=== PATIENT | male | born 1945 | race Two or more races ===

== ENCOUNTER 2016-06-28 00:22 | Inpatient (IN) | payer MEDICARE, MEDICAID ==
[~2016-06-28] VITALS: Ht 162.6 cm; Wt 52.2 kg
[2016-06-28] VITALS (43 sets, daily range): BP systolic 102–143; BP diastolic 46–80
[2016-06-28] MEDS ORDERED: ASPIRIN 325 MG TABLET PO ONE (02:30)
[2016-06-28] MEDS ORDERED: ALBUTEROL FS 2.5 MG/3 ML VIAL.NEB NEB ONE (02:30)
[2016-06-28] MEDS ORDERED: ASPIRIN 81 MG TAB.CHEW ONE (02:41)
[2016-06-28 02:47] LABS: BASOPHILS # (AUTO) 0.1 /CMM (0.0-0.2); BASOPHILS % (AUTO) 0.4 % (0.0-2.0); DIFF TOTAL % 100 %; EOSINOPHILS # (AUTO) 0.3 /CMM (0.0-0.7); EOSINOPHILS % (AUTO) 2.3 % (0.0-6.0); HEMATOCRIT 41 % (39-51); HEMOGLOBIN 13.1 g/dL (13.5-17.5); LYMPHOCYTES # (AUTO) 1.3 /CMM (0.8-4.8); LYMPHOCYTES % (AUTO) 8.8 % (20.0-44.0); MEAN CORPUSCULAR HEMOGLOBIN 27 PG (26.0-33.0); MEAN CORPUSCULAR HGB CONC 32 g/dl (31.0-36.0); MEAN CORPUSCULAR VOLUME 83 fL (80-96); MONOCYTES # (AUTO) 1.2 /CMM (0.1-1.30); MONOCYTES % (AUTO) 7.8 % (2.0-12.0); NEUTROPHILS # (AUTO) 12.3 /CMM (1.8-8.9); NEUTROPHILS % (AUTO) 80.7 % (43.0-81.0); PLATELET COUNT (AUTO) 263 /CMM (150-450); RED BLOOD CELL COUNT(AUTO) 4.92 MIL/uL (4.5-6.0); WHITE BLOOD COUNT (AUTO) 15.3 K/uL (4.3-11.0)
[2016-06-28] MEDS ORDERED: ALBUTEROL FS 2.5 MG/3 ML VIAL.NEB ONE (02:48)
[2016-06-28 03:06] LABS: TROPONIN I 0.026 ng/mL (0.00-0.056)
[2016-06-28 03:11] LABS: CALCIUM, SERUM 9.7 mg/dL (8.5-10.1); CREATININE 6.7 mg/dL (0.6-1.3)
[2016-06-28 03:14] LABS: POTASSIUM 6.7 mmol/L (3.5-5.1)
[2016-06-28 03:37] LABS: ANISOCYTOSIS 2+; TARGET CELLS 1+; TEAR DROP CELLS 1+
[2016-06-28] MEDS ORDERED: DEXTROSE 50%-WATER 50 ML DISP.SYRIN ONE (04:20)
[2016-06-28] MEDS ORDERED: NITROGLYCERIN 0.4 MG/TAB BOTTLE ONE (04:20)
[2016-06-28] MEDS ORDERED: FUROSEMIDE 100 MG/10 ML VIAL ONE (04:20)
[2016-06-28] MEDS ORDERED: INSULIN REGULAR, HUMAN 100 UNIT/ML 10 ML VIAL ONE (04:21)
[2016-06-28] MEDS ORDERED: ALBUTEROL FS 2.5 MG/0.5 ML VIAL.NEB ONE (04:23)
[2016-06-28] MEDS ORDERED: NITROGLYCERIN 0.4 MG/TAB BOTTLE SL PRN ×2 (04:30→05:30)
[2016-06-28] MEDS ORDERED: FUROSEMIDE 40 MG/4 ML VIAL IV ONE (04:30)
[2016-06-28] MEDS ORDERED: ALBUTEROL FS 2.5 MG/0.5 ML VIAL.NEB NEB ONE (04:30)
[2016-06-28] MEDS ORDERED: DEXTROSE 50%-WATER 50 ML DISP.SYRIN IVP ONE (04:30)
[2016-06-28] MEDS ORDERED: INSULIN REGULAR, HUMAN 100 UNIT/ML 10 ML VIAL IV ONE (04:30)
[2016-06-28] MEDS ORDERED: ALBUTEROL FS 2.5 MG/0.5 ML VIAL.NEB NEB PRN (05:30)
[2016-06-28] MEDS ORDERED: HYDROCODONE/APAP 5/325MG 1 EACH TABLET PO PRN ×2 (05:30→10:00)
[2016-06-28] MEDS ORDERED: ACETAMINOPHEN 325 MG TABLET PO PRN ×2 (05:30→10:00)
[2016-06-28] MEDS ORDERED: ONDANSETRON HCL/PF 4 MG/2 ML VIAL IVP PRN (05:30)
[2016-06-28] MEDS ORDERED: Z GUARD REMEDY 2 OZ OINT TP PRN (05:30)
[2016-06-28] MEDS ORDERED: MAG HYDROX/AL HYDROX/SIMETH 30 ML UDC PO PRN (05:30)
[2016-06-28] MEDS ORDERED: ZOLPIDEM TARTRATE 5 MG TABLET PO PRN (05:30)
[2016-06-28] MEDS ORDERED: MORPHINE SULFATE INJ 2 MG/ML DISP.SYRIN IV PRN (05:30)
[2016-06-28] MEDS ORDERED: MAGNESIUM HYDROXIDE 30 ML UDC PO PRN (05:30)
[2016-06-28] MEDS ORDERED: IPRATROPIUM NEB FS 0.5 MG/2.5 ML AMPUL.NEB NEB PRN (05:30)
[2016-06-28 06:02] LABS: TROPONIN I 0.024 ng/mL (0.00-0.056)
[2016-06-28] MEDS: PANTOPRAZOLE 40 MG TABLET.DR PO SCH (07:30)
[2016-06-28] MEDS ORDERED: MELA3TAB PO (08:33)
[2016-06-28] MEDS ORDERED: PANT40TA4 PO (08:33)
[2016-06-28] MEDS ORDERED: METO25TA6 PO (08:33)
[2016-06-28] MEDS ORDERED: FOLI0.8T2 PO (08:33)
[2016-06-28] MEDS ORDERED: ACET-868 PO (08:33)
[2016-06-28] MEDS ORDERED: SENN8.6T6 PO (08:33)
[2016-06-28] MEDS ORDERED: HYDR-3326 PO (08:33)
[2016-06-28] MEDS ORDERED: INSU100V27 SQ (08:33)
[2016-06-28] MEDS ORDERED: BLOO-668 IN (08:33)
[2016-06-28] MEDS ORDERED: GUAI100S11 PO (08:33)
[2016-06-28] MEDS ORDERED: LEVALBUTEROL HCL NEB 1.25 MG/0.5 ML VIAL.NEB IH SCH (10:00)
[2016-06-28] MEDS ORDERED: PANTOPRAZOLE 40 MG TABLET.DR PO SCH (10:00)
[2016-06-28] MEDS ORDERED: GUAIFENESIN 300 MG/15 ML UDC PO PRN (10:00)
[2016-06-28] MEDS: SENNOSIDES 8.6 MG TABLET PO SCH ×2 (10:00→21:41)
[2016-06-28] MEDS ORDERED: Medication Not On Formulary EA (Melatonin 3 MG) PO SCH (10:00)
[2016-06-28] MEDS: DILTIAZEM HCL CD 240 MG PO SCH (10:12)
[2016-06-28] MEDS: methylPREDNISolone SOD SUCC 40 MG/ML VIAL IV SCH ×3 (10:13→17:30)
[2016-06-28] MEDS: BLOOD SUGAR DIAGNOSTIC 1 EACH STRIP IN SCH ×4 (10:25→21:42)
[2016-06-28 10:26] LABS: ABG HCO3 24.9 mmol/L; ABG PCO2 46.3 mmHg (35.0-45.0); ABG PH 7.349 (7.350-7.450); ALLEN TEST Pass; AaDO2 182.2 mmHg; O2Hb 93.2 % (94.0-97.0)
[2016-06-28] MEDS ORDERED: LEVOFLOXACIN (250MG) 250 MG TABLET PO SCH (16:30)
[2016-06-28] MEDS ORDERED: LEVOFLOXACIN (250MG) 250 MG TABLET PO ONE (18:00)
[2016-06-28] MEDS: ALBUTEROL FS 2.5 MG/3 ML VIAL.NEB NEB SCH (20:20)
[2016-06-28] MEDS: IPRATROPIUM NEB FS 0.5 MG/2.5 ML AMPUL.NEB NEB SCH (20:20)
[2016-06-28] MEDS ORDERED: DEXTROSE 50%-WATER 50 ML DISP.SYRIN IV PRN (22:00)
[2016-06-28] MEDS: BLOOD SUGAR DIAGNOSTIC 1 EACH STRIP VI SCH (22:20)
[2016-06-28] MEDS: *INSULIN REGULAR(HUMULIN R)HUM 100 UNIT/ML VIAL SQ PRN (22:21)
[2016-06-29] VITALS (41 sets, daily range): BP systolic 95–131; BP diastolic 47–73
[2016-06-29] MEDS: IPRATROPIUM NEB FS 0.5 MG/2.5 ML AMPUL.NEB NEB SCH ×4 (01:03→20:19)
[2016-06-29] MEDS: ALBUTEROL FS 2.5 MG/3 ML VIAL.NEB NEB SCH ×4 (01:04→20:19)
[2016-06-29 04:39] LABS: DIFF TOTAL % 100 %; HEMATOCRIT 38 % (39-51); HEMOGLOBIN 12.2 g/dL (13.5-17.5); LYMPHOCYTES # (AUTO) 0.5 /CMM (0.8-4.8); LYMPHOCYTES % (AUTO) 1.5 % (20.0-44.0); MEAN CORPUSCULAR HEMOGLOBIN 27 PG (26.0-33.0); MEAN CORPUSCULAR HGB CONC 32 g/dl (31.0-36.0); MEAN CORPUSCULAR VOLUME 84 fL (80-96); MONOCYTES # (AUTO) 0.4 /CMM (0.1-1.30); MONOCYTES % (AUTO) 1.1 % (2.0-12.0); NEUTROPHILS # (AUTO) 34.3 /CMM (1.8-8.9); NEUTROPHILS % (AUTO) 97.4 % (43.0-81.0); PLATELET COUNT (AUTO) 248 /CMM (150-450); RED BLOOD CELL COUNT(AUTO) 4.56 MIL/uL (4.5-6.0)
[2016-06-29 04:55] LABS: ALBUMIN 2.8 g/dL (3.4-5.0); BILIRUBIN,TOTAL 0.6 mg/dL (0.2-1.0); CREATININE 5.6 mg/dL (0.6-1.3); PHOSPHORUS 6.7 mg/dL (2.5-4.9); POTASSIUM 5.7 mmol/L (3.5-5.1); TOTAL PROTEIN, SERUM 8.3 g/dL (6.4-8.2)
[2016-06-29 04:57] LABS: WHITE BLOOD COUNT (AUTO) 35.2 K/uL (4.3-11.0)
[2016-06-29] MEDS: VIT B CMPLX 3/FA/VIT C/BIOTIN 1 TAB TABLET PO SCH (08:03)
[2016-06-29] MEDS: PANTOPRAZOLE 40 MG TABLET.DR PO SCH (08:04)
[2016-06-29] MEDS: methylPREDNISolone SOD SUCC 40 MG/ML VIAL IV SCH ×3 (08:04→17:04)
[2016-06-29] MEDS: BLOOD SUGAR DIAGNOSTIC 1 EACH STRIP VI SCH ×4 (08:05→21:45)
[2016-06-29] MEDS: DILTIAZEM HCL CD 240 MG PO SCH (08:05)
[2016-06-29 10:21] LABS: BAND % (MANUAL) 3 % (0.0-5.0); LYMPHOCYTES % (MANUAL) 1 % (16-48); PLATELET ESTIMATE ADEQUATE
[2016-06-29 10:22] LABS: ANISOCYTOSIS 2+; HYPOCHROMASIA 1+; SCHISTOCYTES 1+
[2016-06-29] MEDS ORDERED: FEE PK DOSING 1 MIN EA MC ONE ×2 (11:15→20:50)
[2016-06-29] MEDS: INSULIN REGULAR, HUMAN 100 UNIT/ML 3 ML VIAL SQ PRN ×2 (11:30→17:08)
[2016-06-29] MEDS ORDERED: SECONDARY IV SET 1 EA INFUS.SET MC ONE ×4 (11:55→21:52)
[2016-06-29] MEDS ORDERED: IV SET PRIMARY PUMP SET 1 EA INFUS.SET MC ONE ×3 (11:59→21:52)
[2016-06-29] MEDS ORDERED: VANCOMYCIN 1 GM in IV D5W 250 ML IV ONE (12:00)
[2016-06-29] MEDS ORDERED: PIPERACILLIN /TAZOBACTAM 2.25 G in IV D5W 50 ML IV SCH ×2 (12:00→13:00)
[2016-06-29] MEDS: ALBUMIN 25% 25 GM in PREMIX 1 EA IV PRN ×2 (12:21→12:51)
[2016-06-29] MEDS ORDERED: IV NS 0.9% 250 ML IV ONE ×2 (14:52→21:52)
[2016-06-29] MEDS ORDERED: AMIKACIN 300 MG in IV D5W 100 ML IV ONE (21:00)
[2016-06-29] MEDS ORDERED: DOSING PER PHARMACY-AMIKACI IV XX PRN (21:00)
[2016-06-29] MEDS: *INSULIN REGULAR(HUMULIN R)HUM 100 UNIT/ML VIAL SQ PRN (21:21)
[2016-06-29] MEDS: SENNOSIDES 8.6 MG TABLET PO SCH (21:45)
[2016-06-30] VITALS (8 sets, daily range): BP systolic 110–128; BP diastolic 56–65
[2016-06-30] MEDS: ALBUTEROL FS 2.5 MG/3 ML VIAL.NEB NEB SCH ×4 (01:39→19:43)
[2016-06-30] MEDS: IPRATROPIUM NEB FS 0.5 MG/2.5 ML AMPUL.NEB NEB SCH ×4 (01:39→19:43)
[2016-06-30] MEDS: BLOOD SUGAR DIAGNOSTIC 1 EACH STRIP VI SCH ×4 (06:48→21:12)
[2016-06-30] MEDS: PANTOPRAZOLE 40 MG TABLET.DR PO SCH (06:49)
[2016-06-30] MEDS: INSULIN REGULAR, HUMAN 100 UNIT/ML 3 ML VIAL SQ PRN ×3 (06:56→16:42)
[2016-06-30] MEDS: DILTIAZEM HCL CD 240 MG PO SCH (09:00)
[2016-06-30] MEDS ORDERED: VANCOMYCIN 500 MG in IV D5W 100 ML IV PRN (09:00)
[2016-06-30] MEDS: VIT B CMPLX 3/FA/VIT C/BIOTIN 1 TAB TABLET PO SCH (09:02)
[2016-06-30] MEDS: methylPREDNISolone SOD SUCC 40 MG/ML VIAL IV SCH ×3 (09:02→16:32)
[2016-06-30] MEDS ORDERED: LEVOFLOXACIN (500MG) 500 MG TABLET PO SCH (18:00)
[2016-06-30] MEDS ORDERED: AMIKACIN 300 MG in IV D5W 100 ML IV PRN (21:00)
[2016-06-30] MEDS: SENNOSIDES 8.6 MG TABLET PO SCH (21:12)
[2016-07-01] MEDS: ALBUTEROL FS 2.5 MG/3 ML VIAL.NEB NEB SCH ×3 (01:21→12:39)
[2016-07-01] MEDS: IPRATROPIUM NEB FS 0.5 MG/2.5 ML AMPUL.NEB NEB SCH ×3 (01:21→12:39)
[2016-07-01] MEDS: BLOOD SUGAR DIAGNOSTIC 1 EACH STRIP VI SCH ×2 (06:23→11:05)
[2016-07-01] MEDS: INSULIN REGULAR, HUMAN 100 UNIT/ML 3 ML VIAL SQ PRN (06:28)
[2016-07-01 07:32] LABS: HEMATOCRIT 39 % (39-51); HEMOGLOBIN 12.5 g/dL (13.5-17.5); LYMPHOCYTES # (AUTO) 0.2 /CMM (0.8-4.8); LYMPHOCYTES % (AUTO) 1.3 % (20.0-44.0); MEAN CORPUSCULAR HEMOGLOBIN 27 PG (26.0-33.0); MEAN CORPUSCULAR HGB CONC 32 g/dl (31.0-36.0); MEAN CORPUSCULAR VOLUME 84 fL (80-96); MONOCYTES # (AUTO) 0.5 /CMM (0.1-1.30); MONOCYTES % (AUTO) 2.6 % (2.0-12.0); NEUTROPHILS # (AUTO) 17.3 /CMM (1.8-8.9); NEUTROPHILS % (AUTO) 96.1 % (43.0-81.0); PLATELET COUNT (AUTO) 296 /CMM (150-450); RED BLOOD CELL COUNT(AUTO) 4.64 MIL/uL (4.5-6.0)
[2016-07-01 08:00] VITALS: BP_SYST 133; BP_DIAS 70; BP_DIAS 71
[2016-07-01 08:18] LABS: DIFF TOTAL % 100 %
[2016-07-01] MEDS: VIT B CMPLX 3/FA/VIT C/BIOTIN 1 TAB TABLET PO SCH (08:21)
[2016-07-01] MEDS: PANTOPRAZOLE 40 MG TABLET.DR PO SCH (08:21)
[2016-07-01] MEDS: methylPREDNISolone SOD SUCC 40 MG/ML VIAL IV SCH (08:21)
[2016-07-01 08:22] VITALS: BP 133/70
[2016-07-01] MEDS: DILTIAZEM HCL CD 240 MG PO SCH (08:22)
[2016-07-01] MEDS: *INSULIN REGULAR(HUMULIN R)HUM 100 UNIT/ML VIAL SQ PRN (11:13)
[2016-07-01] MEDS ORDERED: SECONDARY IV SET 1 EA INFUS.SET MC ONE (12:38)
[2016-07-01] MEDS ORDERED: VANCOMYCIN 1 GM in IV D5W 250 ML IV ONE (14:00)
[2016-07-01] MEDS ORDERED: IV NS 0.9% 250 ML IV ONE (14:17)
[2016-07-02] MEDS ORDERED: VANCOMYCIN 500 MG in IV D5W 100 ML IV PRN (06:00)
[2016-07-02] MEDS ORDERED: methylPREDNISolone SOD SUCC 40 MG/ML VIAL IV SCH (09:00)
== END 2016-07-01 16:30 | DRG 291 ==
LOC: ER 00:23 → TELE 05:08 → ICU 10:34 → TELE 06-29 17:40 → MED 06-30 11:54
PROVIDERS: ADMIT Family Medicine; ATTEND Internal Medicine
PROC: 5A1D60Z (ICD-10-PCS; principal; 2016-06-29)
DX: I50.33 Acute on chronic diastolic (congestive) heart failure (principal); N18.6 End stage renal disease; J96.01 Acute respiratory failure with hypoxia; J18.9 Pneumonia, unspecified organism; G92 Toxic encephalopathy; I24.9 Acute ischemic heart disease, unspecified; J98.11 Atelectasis; R64 Cachexia; I13.2 Hypertensive heart and chronic kidney disease with heart failure and with stage 5 chronic kidney disease, or end stage renal disease; Z99.2 Dependence on renal dialysis; E87.5 Hyperkalemia; I25.10 Atherosclerotic heart disease of native coronary artery without angina pectoris; Z95.1 Presence of aortocoronary bypass graft; E11.22 Type 2 diabetes mellitus with diabetic chronic kidney disease; F17.210 Nicotine dependence, cigarettes, uncomplicated; I05.0 Rheumatic mitral stenosis; J20.9 Acute bronchitis, unspecified; T38.0X5A Adverse effect of glucocorticoids and synthetic analogues, initial encounter; Z93.3 Colostomy status
CPT/HCPCS: 36415; 36600; 71010-TC; 80048-TC; 80053-TC; 80061-TC; 80150; 80202-TC; 82962-TC; 83735-TC; 83880; 84100-TC; 84132-TC; 84484-TC; 85025-TC; 87070-TC; 87081-TC; 87186-TC; 87400; 90935-TC; 93307-TC; 93970-TC; 94799-TC; A4216; A4217; A4606; A6402; J0278; J1815; J1940; J2405; J2543; J2920; J3370; J7050; J7060; P9047; Z7610

== ENCOUNTER 2017-05-29 10:15 | Inpatient (IN) | payer MEDICARE, MEDICAID ==
[~2017-05-29] VITALS: Ht 165.1 cm; Wt 40.8 kg
[~2017-05-29 10:15] MED LIST: ACET-868 PO; BLOO-668 IN; FOLI0.8T2 PO; GUAI100S11 PO; HYDR-3326 PO; INSU100V27 SQ; MELA3TAB PO; METO25TA6 PO; PANT40TA4 PO; SENN8.6T6 PO
--- NOTE | 2017-05-29 10:45 | NUR ---
PT CAME IN FROM HOME SENT BY DR MEIER FOR MED CLEARANCE TO GO BACK TO [facility]. NAD NOTED. VSS. SEEN BY MD FOR EVAL. SAFETY AND COMFORT MEASURES PROVIDED. WILL MONITOR.
--- NOTE | 2017-05-29 11:00 | NUR ---
IV ACCESS STARTED. BLOOD DRAWN FOR LABS.
[2017-05-29 11:13] LABS: BASOPHILS % (AUTO) 0.6 % (0.0-2.0); EOSINOPHILS # (AUTO) 0.2 /CMM (0.0-0.7); HEMATOCRIT 55 % (39-51); LYMPHOCYTES # (AUTO) 1.3 /CMM (0.8-4.8); LYMPHOCYTES % (AUTO) 21.7 % (20.0-44.0); MEAN CORPUSCULAR HEMOGLOBIN 31 PG (26.0-33.0); MEAN CORPUSCULAR HGB CONC 33 g/dl (31.0-36.0); MEAN CORPUSCULAR VOLUME 94 fL (80-96); MONOCYTES # (AUTO) 1.2 /CMM (0.1-1.30); MONOCYTES % (AUTO) 19.1 % (2.0-12.0); NEUTROPHILS # (AUTO) 3.3 /CMM (1.8-8.9); NEUTROPHILS % (AUTO) 54.6 % (43.0-81.0); PLATELET COUNT (AUTO) 142 /CMM (150-450); RDW COEFFICIENT OF VARIATION 17.5 (11.5-15.0); RED BLOOD CELL COUNT(AUTO) 5.89 MIL/uL (4.5-6.0); WHITE BLOOD COUNT (AUTO) 6.1 K/uL (4.3-11.0)
[2017-05-29 11:15] LABS: CALCIUM, SERUM 9.7 mg/dL (8.5-10.1); CARBON DIOXIDE 32 mmol/L (21-32); CHLORIDE 97 mmol/L (98-107); GLUCOSE 227 mg/dL (74-106); POTASSIUM 6.1 mmol/L (3.5-5.1); SODIUM SERUM 139 mmol/L (136-145); UREA NITROGEN, BLOOD 49 mg/dL (7-18)
[2017-05-29 11:18] LABS: CREATININE 7.6 mg/dL (0.6-1.3)
[2017-05-29] MEDS ORDERED: METO25TA6 PO (12:50)
[2017-05-29] MEDS ORDERED: DOCU-25 PO (12:50)
[2017-05-29] MEDS ORDERED: ASPI81TA2 PO (12:50)
[2017-05-29] MEDS ORDERED: AMIN30LI2 PO (12:50)
[2017-05-29] MEDS ORDERED: ATOR40TA PO (12:50)
[2017-05-29] MEDS ORDERED: LACT10SO29 PO (12:50)
[2017-05-29] MEDS ORDERED: INSU100I4 SQ (12:50)
[2017-05-29] MEDS ORDERED: LANT500T2 PO (12:50)
[2017-05-29] MEDS ORDERED: ACET-2605 PO (12:50)
[2017-05-29] MEDS ORDERED: FLUD0.1T PO (12:50)
[2017-05-29] MEDS ORDERED: TRAM50TA2 PO (12:50)
[2017-05-29] MEDS ORDERED: PATI16.8 PO (12:50)
[2017-05-29] MEDS ORDERED: FAMO40TA7 PO (12:50)
[2017-05-29] MEDS ORDERED: FURO80TA85 PO (12:50)
[2017-05-29] MEDS ORDERED: CINA30TA PO (12:50)
--- NOTE | 2017-05-29 13:26 | NUR ---
REPORT GIVEN TO FIOR FRANCE FOR5 MS 307.
--- NOTE | 2017-05-29 14:00 | NUR ---
ADMISSION NOTE RECEIVED PT. A/OX4, PT IS DANISH SPEAKING ONLY. NO S/S OF RESPIRATORY DISTRESS OR SOB. NO C/O PAIN AT THIS TIME. IV ACCESS LOCATED ON RIGHT AC 20G SL. LEFT UPPER ARM AV FISTULA NOTED. COLOSTOMY BAG CHANGED. SAFETY MEASURES IN PLACE, CALL LIGHT IN REACH. WILL CONTINUE TO MONITOR.
[2017-05-29] MEDS ORDERED: ZOLPIDEM TARTRATE 5 MG TABLET PO PRN (15:00)
[2017-05-29] MEDS ORDERED: TRAMADOL HCL 50 MG TABLET PO PRN (15:00)
[2017-05-29] MEDS ORDERED: ACETAMINOPHEN 325 MG TABLET PO PRN ×2 (15:00)
[2017-05-29] MEDS: METOPROLOL TARTRATE 25 MG TABLET PO SCH (15:00)
[2017-05-29] MEDS ORDERED: Z GUARD REMEDY 2 OZ OINT TP PRN (15:00)
[2017-05-29] MEDS ORDERED: ONDANSETRON HCL/PF 4 MG/2 ML VIAL IVP PRN (15:00)
[2017-05-29] MEDS ORDERED: HYDROCODONE/APAP 5/325MG 1 EACH TABLET PO PRN (15:00)
[2017-05-29] MEDS ORDERED: MAG HYDROX/AL HYDROX/SIMETH 30 ML UDC PO PRN (15:00)
[2017-05-29] MEDS ORDERED: MAGNESIUM HYDROXIDE 30 ML UDC PO PRN (15:00)
[2017-05-29] MEDS: LACTULOSE 10 G/15 ML UDC (PYXIS) PO SCH (17:47)
[2017-05-29] MEDS: DOCUSATE SODIUM 100 MG CAPSULE PO SCH (17:48)
--- NOTE | 2017-05-29 19:05 | NUR ---
RN CLOSING NOTES PT IS IN BED RESTING. A/OX4, WOLOF SPEAKING. NO S/S OF RESPIRATORY DISTRESS OR SOB. NO C/O PAIN. PT TO BE EVALUATED AND MEDICALLY CLEARED. ONCE CLEARED WILL BE DC TO SNF. SAFETY MEASURES IN PLACE, CALL LIGHT IN REACH. WILL ENDORSE TO FOREMAN SHIPPING DEPARTMENT FOR KOSTA.
--- NOTE | 2017-05-29 19:30 | NUR ---
MS RN OPENING NOTES: RECEIVED PT IN BED AND IS GETTING DIALYSIS. DIALYSIS NURSE AT BEDSIDE. PT IS A/OX3. PT IS WELSH SPEAKING/UNDERSTANDING ONLY. NO S/S OF DISTRESS NOTED AT THIS TIME. NO SOB. PT OM ROOM AIR AND TOLERATING WELL. PT HAS COLOSTOMY BAG. PT HAS IV ON R AC #20G AND IS S/L. PT ALSO HAS NGUYEN AV CATH WHERE HE IS GETTING DIALYSIS. CALL LIGHT WITHIN PT'S REACH. BED KEPT IN LOW, LOCKED POSITION, AND SIDE RAILS X 2UP. WILL CONTINUE TO MONITOR PT.
[2017-05-29 20:00] VITALS: BP 122/69
[2017-05-29 20:11] VITALS: BP 122/67
--- NOTE | 2017-05-29 21:14 | NUR ---
MS RN NOTES: DIALYSIS FINISHED. 0 OUTPUT. WILL CONTINUE TO MONITOR PT.
[2017-05-29] MEDS: FAMOTIDINE (20 MG) 20 MG TABLET PO SCH (21:59)
[2017-05-29] MEDS ORDERED: Medication Not On Formulary EA (Melatonin 3 MG) PO SCH (22:00)
[2017-05-29] MEDS: ATORVASTATIN 40 MG TABLET PO SCH (22:00)
[2017-05-29] MEDS: PROSOURCE / PROSTAT (PYXIS) 30 ML UDC PO SCH (22:00)
[2017-05-30 06:22] LABS: BASOPHILS # (AUTO) 0.1 /CMM (0.0-0.2); BASOPHILS % (AUTO) 0.9 % (0.0-2.0); EOSINOPHILS # (AUTO) 0.3 /CMM (0.0-0.7); EOSINOPHILS % (AUTO) 5.1 % (0.0-6.0); HEMATOCRIT 54 % (39-51); HEMOGLOBIN 17.5 g/dL (13.5-17.5); LYMPHOCYTES # (AUTO) 1.3 /CMM (0.8-4.8); LYMPHOCYTES % (AUTO) 22.8 % (20.0-44.0); MEAN CORPUSCULAR HEMOGLOBIN 30 PG (26.0-33.0); MEAN CORPUSCULAR HGB CONC 32 g/dl (31.0-36.0); MEAN CORPUSCULAR VOLUME 94 fL (80-96); MONOCYTES # (AUTO) 1.1 /CMM (0.1-1.30); MONOCYTES % (AUTO) 17.8 % (2.0-12.0); NEUTROPHILS # (AUTO) 3.2 /CMM (1.8-8.9); NEUTROPHILS % (AUTO) 53.4 % (43.0-81.0); PLATELET COUNT (AUTO) 120 /CMM (150-450); RDW COEFFICIENT OF VARIATION 17.6 (11.5-15.0); RED BLOOD CELL COUNT(AUTO) 5.77 MIL/uL (4.5-6.0); WHITE BLOOD COUNT (AUTO) 5.9 K/uL (4.3-11.0)
[2017-05-30 06:46] LABS: CALCIUM, SERUM 9.7 mg/dL (8.5-10.1); CARBON DIOXIDE 28 mmol/L (21-32); CHLORIDE 97 mmol/L (98-107); CREATININE 7.1 mg/dL (0.6-1.3); GLUCOSE 151 mg/dL (74-106); MAGNESIUM 2.1 mg/dL (1.8-2.4); PHOSPHORUS 5.8 mg/dL (2.5-4.9); POTASSIUM 5.8 mmol/L (3.5-5.1); SODIUM SERUM 136 mmol/L (136-145); UREA NITROGEN, BLOOD 47 mg/dL (7-18)
--- NOTE | 2017-05-30 07:30 | NUR ---
MS RN CLOSING NOTES: ALL NEEDS WERE ATTENDED AND ANTICIPATED FOR.PT IS A/OX3. PT IS THAI SPEAKING/UNDERSTANDING ONLY. PT ASLEEP AT THIS TIME. NO S/S OF DISTRESS NOTED AT THIS TIME. NO SOB. PT ON ROOM AIR AND TOLERATING WELL. PT HAS COLOSTOMY BAG. PT HAS IV ON R AC #20G AND IS S/L. PT ALSO HAS NGUYEN AV CATH. CALL LIGHT WITHIN PT'S REACH. BED KEPT IN LOW, LOCKED POSITION, AND SIDE RAILS X 2UP. ENDORSED TO AM NURSE FOR KOSTA.
--- NOTE | 2017-05-30 07:48 | NUR ---
RN OPEN NOTES RECEIVED REPORT FROM AUTOMOTIVE PARTS COUNTER PERSON NURSE. PATIENT IS IN BED, WITH HIS EYES CLOSED, EASILY AROUSED TO LIGHT TOUCH. NO SIGNS AND SYMPTOMS OF DISTRESS OR PAIN. BED IN LOW POSITION, LOCKED AND TWO SIDE RAILS ARE UP. CALL LIGHT WITHIN REACH FOR SAFETY. WILL CONTINUE TO ASSES AND MONITOR PATIENT THOUGH OUT MY SHIFT
[2017-05-30 08:00] VITALS: BP 132/75
[2017-05-30] MEDS: ASPIRIN 81 MG TAB.CHEW PO SCH (08:38)
[2017-05-30] MEDS: LACTULOSE 10 G/15 ML UDC (PYXIS) PO SCH ×2 (08:38→16:51)
[2017-05-30] MEDS: DOCUSATE SODIUM 100 MG CAPSULE PO SCH ×2 (08:38→16:51)
[2017-05-30] MEDS: FLUDROCORTISONE 0.1 MG TABLET PO SCH (08:38)
[2017-05-30] MEDS: CINACALCET HCL 30 MG TABLET PO SCH (08:39)
[2017-05-30] MEDS: VIT B CMPLX 3/FA/VIT C/BIOTIN 1 TAB TABLET PO SCH (08:39)
[2017-05-30] MEDS: FUROSEMIDE 80 MG TABLET PO SCH (09:00)
--- NOTE | 2017-05-30 09:34 | NUR ---
LASIK HELD DUE TO DIALYSIS TODAY
[2017-05-30 09:39] LABS: LYMPHOCYTES % (MANUAL) 9 % (16-48); MONOCYTES % (MANUAL) 10 % (0-11.0); NEUTROPHILS % (MANUAL) 81 (42-76)
--- NOTE | 2017-05-30 11:00 | NUR ---
DIALYSIS NURSE AT BEDSIDE
--- NOTE | 2017-05-30 14:00 | NUR ---
DIALYSIS COMPLETED. 1,000 ML REMOVED
[2017-05-30 16:00] VITALS: BP 110/68
[2017-05-30] MEDS: LANTHANUM CARBONATE 1,000 MG TAB.CHEW PO SCH (18:48)
--- NOTE | 2017-05-30 19:04 | NUR ---
RN CLOSING NOTES: PATIENT IS IS BED. ALERT AND ORIENTED TO NAME, PLACE AND TIME. PATIENT IS TURKISH SPEAKING. NO SIGNS AND SYMPTOMS OF DISTRESS OR PAIN. NO SOB. PT ON ROOM AIR AND TOLERATING WELL. PT HAS COLOSTOMY BAG. IV SITE IS INTACT AND PATENT. PT HAS NGUYEN AV CATH. CALL LIGHT WITHIN REACH FOR SAFETY. BED IN LOW, LOCKED POSITION, AND TWO SIDE RAILS. ALL NEEDS WERE ATTENDED AND ANTICIPATED FOR. WILL ENDORSE TO PATTERN MAKER PROGRAMER NURSE NURSE FOR KOSTA.
--- NOTE | 2017-05-30 19:30 | NUR ---
MS RN OPENING NOTES: PATIENT IN BED, AOX3, CZECH SPEAKING, ON ROOM AIR, BREATHING EVEN AND UNLABORED. BREATH SOUNDS CLEAR TO AUSCULTATION. APPEARS CALM AND IN NO DISTRESS. DENIES PAIN AT THIS TIME. HAS COLOSTOMY BAG AT R SIDE OF ABDOMEN, WITH INTACT ATTACHMENT, NO REDNESS OR SIGNS OF IRRITATION AROUND SKIN. DRAINED CONTENTS, WITH SOFT DARK BROWN STOOLS. PROVIDED FOR COMFORT AND SAFETY. BED IN LOWEST AND LOCKED POSITION, SIDERAILS UP X 2. WILL CONT TO MONITOR.
[2017-05-30 20:00] VITALS: BP 134/77
[2017-05-30 21:43] VITALS: BP 134/77
[2017-05-30] MEDS: PROSOURCE / PROSTAT (PYXIS) 30 ML UDC PO SCH (22:10)
[2017-05-30] MEDS: FAMOTIDINE (20 MG) 20 MG TABLET PO SCH (22:11)
[2017-05-30] MEDS: ATORVASTATIN 40 MG TABLET PO SCH (22:11)
--- NOTE | 2017-05-31 06:55 | NUR ---
MS RN CLOSING NOTES: PATIENT IN BED, AOX3, ON ROOM AIR, BREATHING EVEN AND UNLABORED. APPEARS CALM AND IN NO DISTRESS, DENIES PAIN. COLOSTOMY BAG IN PLACE, DRAINED THROUGH NIGHT, PATENT. DUE MEDS GIVEN, PROVIDED FOR COMFORT AND SAFETY. BED IN LOWEST AND LOCKED POSITION, SIDERAILS UP X2. NO ACUTE CHANGE IN CONDITION NOTED THROUGH SHIFT. WILL ENDORSE TO AM RN FOR KOSTA.
[2017-05-31 07:21] LABS: CALCIUM, SERUM 9.8 mg/dL (8.5-10.1); CARBON DIOXIDE 27 mmol/L (21-32); CHLORIDE 95 mmol/L (98-107); CREATININE 7.3 mg/dL (0.6-1.3); GLUCOSE 115 mg/dL (74-106); POTASSIUM 5.6 mmol/L (3.5-5.1); SODIUM SERUM 133 mmol/L (136-145); UREA NITROGEN, BLOOD 46 mg/dL (7-18)
--- NOTE | 2017-05-31 07:35 | NUR ---
MS RN OPENING NOTE PATIENT IS ALERT AND ORIENTED x3. NO PAIN AT THIS TIME. NO SOB OR DISTRESS NOTED. CALL LIGHT WITHIN REACH. SAFETY MEASURES IMPLEMENTED. IV ON RIGHT AC INTACT AND PATENT NO REDNESS OR SWELLING NOTED. ABLE TO COMMUNICATE NEEDS. AMBULATORY WITH ASSISTANCE- WALKER. LABS THIS MORNING. COLOSTOMY IN PLACE, DRY AND INTACT. WILL CONTINUE TO MONITOR THROUGHOUT SHIFT.
[2017-05-31 08:00] VITALS: BP 129/76
[2017-05-31] MEDS: LACTULOSE 10 G/15 ML UDC (PYXIS) PO SCH ×2 (09:14→16:35)
[2017-05-31] MEDS: FLUDROCORTISONE 0.1 MG TABLET PO SCH (09:14)
[2017-05-31] MEDS: VIT B CMPLX 3/FA/VIT C/BIOTIN 1 TAB TABLET PO SCH (09:14)
[2017-05-31] MEDS: CINACALCET HCL 30 MG TABLET PO SCH (09:14)
[2017-05-31] MEDS: DOCUSATE SODIUM 100 MG CAPSULE PO SCH ×2 (09:14→16:35)
[2017-05-31] MEDS: ASPIRIN 81 MG TAB.CHEW PO SCH (09:14)
[2017-05-31] MEDS: FUROSEMIDE 80 MG TABLET PO SCH (09:14)
[2017-05-31] MEDS: LANTHANUM CARBONATE 1,000 MG TAB.CHEW PO SCH ×3 (09:18→16:35)
[2017-05-31 16:00] VITALS: BP 98/60
--- NOTE | 2017-05-31 18:33 | NUR ---
MS RN CLOSING NOTE PATIENT IS ALERT AND ORIENTED x3. NO PAIN AT THIS TIME. NO SOB OR DISTRESS NOTED. CALL LIGHT WITHIN REACH AT ALL TIMES. SAFETY MEASURES IMPLEMENTED. ABLE TO COMMUNICATE NEEDS. COLOSTOMY BAG EMPTIED-250 ML. ALL DUE MEDICATIONS GIVEN ORDERED. ALL NURSING CARE NEEDS ATTENDED NEEDED. S/P HD TODAY-300 ML OUTPUT. AMBULATORY WITH ASSISTANCE. IV INTACT AND PATENT NO REDNESS OR SWELLING NOTED. NO IV FLUIDS AT THIS TIME. POSSIBLE DISCHARGE IN AM. WILL ENDORSE TO MEDICINAL CHEMIST NURSE FOR KOSTA
--- NOTE | 2017-05-31 19:30 | NUR ---
MS RN OPENING NOTES RECEIVED PT AWAKE,ALERT,VERBALLY RESPONSIVE,ON ROOM AIR,NO SOB NOTED.DENIES ANY PAIN OR DISCOMFORT AT THIS TIME.CALL LIGHT WITHIN REACH.KEPT CLEAN AND COMFORTABLE.ATTENDED ALL NEEDS. WILL CONTINUE TO MONITOR ACCORDINGLY
[2017-05-31 20:00] VITALS: BP 98/64
[2017-05-31] MEDS: PROSOURCE / PROSTAT (PYXIS) 30 ML UDC PO SCH (21:29)
[2017-05-31] MEDS: FAMOTIDINE (20 MG) 20 MG TABLET PO SCH (21:29)
[2017-05-31] MEDS: ATORVASTATIN 40 MG TABLET PO SCH (21:29)
[2017-05-31 22:00] VITALS: BP 120/76
--- NOTE | 2017-06-01 06:13 | NUR ---
MS RN NOTES PT IN BED ASLEEP,ON ROOM AIR,NO SOB NOTED.NO S/SX OF PAIN OR DISCOMFORT NOTED AT THIS TIME. IV SITE INTACT, PATENT,NO S/SX OF INFILTRATION NOTED. CALL LIGHT WITHIN REACH.WILL CONTINUE TO MONITOR
--- NOTE | 2017-06-01 07:30 | NUR ---
RN OPEN NOTES RECEIVED REPORT FROM METHODS ANALYST DATA PROCESSING NURSE. WILL CONTINUE TO ASSESS AND MONITOR PATIENT THROUGH OUT MY SHIFT
[2017-06-01 08:00] VITALS: BP 105/62
--- NOTE | 2017-06-01 09:00 | NUR ---
HELD METOPROLOL DUE TO BLOOD PRESSURE ON THE LOW SIDE. ADMINISTERED LASIK. WILL RECHECK BLOOD PRESSURE IN AN HOUR AND WILL ADMINISTER IF BP ALLOWED
[2017-06-01] MEDS: VIT B CMPLX 3/FA/VIT C/BIOTIN 1 TAB TABLET PO SCH (09:29)
[2017-06-01] MEDS: CINACALCET HCL 30 MG TABLET PO SCH (09:29)
[2017-06-01] MEDS: ASPIRIN 81 MG TAB.CHEW PO SCH (09:29)
[2017-06-01] MEDS: FLUDROCORTISONE 0.1 MG TABLET PO SCH (09:29)
[2017-06-01] MEDS: FUROSEMIDE 80 MG TABLET PO SCH (09:29)
[2017-06-01] MEDS: LANTHANUM CARBONATE 1,000 MG TAB.CHEW PO SCH ×2 (09:29→13:46)
[2017-06-01] MEDS: DOCUSATE SODIUM 100 MG CAPSULE PO SCH (09:29)
[2017-06-01] MEDS: LACTULOSE 10 G/15 ML UDC (PYXIS) PO SCH (09:29)
--- NOTE | 2017-06-01 10:15 | NUR ---
RECHECKED BLOOD PRESSURE. 105/ ADMINISTERED LOPRESSOR
[2017-06-01 11:13] VITALS: BP 103/62
[2017-06-01] MEDS: METOPROLOL TARTRATE 25 MG TABLET PO SCH (11:13)
--- NOTE | 2017-06-01 14:30 | NUR ---
BRISKET PULLER NOTES PATIENT DISCHARGE ORDER RECEIVED AND JIGNESH OUT. NO SIGNS AND SYMPTOMS OF DISTRESS. DENIED PAIN. PATIENT IS LEAVING IN A STABLE CONDITION. ALL PERSONAL BELONGING WITH PATIENT AT TIME OF DISCHARGE. ALL DISCHARGE INSTRUCTIONS EXPLAINED TO PATIENT, DAUGHTER AND SNF RN ENMANUEL. ALL VERBALIZED UNDERSTANDING. PATIENT'S DAUGHTER SIGNED BOTH DISCHARGE PAPERS AND BELONGING LIST. IV SITE REMOVED. ID BAND REMOVED. COLOSTOMY BAD REPLACED. REPORT GAVE TO HERIBERTO FRANCE, ENMANUEL 410B. PATIENT TRANSPORTED TO [facility] VIA AMBULANCE AND TWO cellophane casting machine repairer. NO NEW CONCERNS IDENTIFIED UPON DISCHARGE.
== END 2017-06-01 14:20 | DRG 917 ==
LOC: ER 10:19 → MED 13:29
PROVIDERS: ADMIT Internal Medicine; ATTEND Internal Medicine
PROC: 5A1D70Z Performance of Urinary Filtration, Intermittent, Less than 6 Hours Per Day (ICD-10-PCS; principal; 2017-05-29)
DX: T59.811A Toxic effect of smoke, accidental (unintentional), initial encounter (principal); N18.6 End stage renal disease; E11.22 Type 2 diabetes mellitus with diabetic chronic kidney disease; E11.40 Type 2 diabetes mellitus with diabetic neuropathy, unspecified; I12.0 Hypertensive chronic kidney disease with stage 5 chronic kidney disease or end stage renal disease; E87.5 Hyperkalemia; Z99.2 Dependence on renal dialysis; X08.8XXA Exposure to other specified smoke, fire and flames, initial encounter; Y92.129 Unspecified place in nursing home as the place of occurrence of the external cause; G90.1 Familial dysautonomia [Riley-Day]; E78.5 Hyperlipidemia, unspecified; F17.210 Nicotine dependence, cigarettes, uncomplicated; I25.10 Atherosclerotic heart disease of native coronary artery without angina pectoris; Z95.1 Presence of aortocoronary bypass graft; F03.90 Unspecified dementia, unspecified severity, without behavioral disturbance, psychotic disturbance, mood disturbance, and anxiety; Z93.3 Colostomy status; Z79.4 Long term (current) use of insulin; E83.9 Disorder of mineral metabolism, unspecified
CPT/HCPCS: 36415; 80048-TC; 83735-TC; 84100-TC; 84443-TC; 84520-TC; 85025-TC; 87081-TC; 90935-TC; A4606; Z7610

== ENCOUNTER 2017-07-27 20:59 | Emergency (ER) | payer MEDICARE, MEDICAID ==
[~2017-07-27] VITALS: Ht 172.7 cm; Wt 68.0 kg
[~2017-07-27 20:59] MED LIST changes: +ACET-2605 PO; +AMIN30LI2 PO; +ASPI-1169 PO; +ATOR40TA PO; +CINA30TA2 PO; +DOCU-141 PO; +FAMO40TA7 PO; +FLUD0.1T PO; +FURO80TA85 PO; -GUAI100S11 PO; -HYDR-3326 PO; +INSU100I4 SQ; -INSU100V27 SQ; +LACT10SO29 PO; +LANT500T2 PO; -PANT40TA4 PO; +PATI16.8 PO; -SENN8.6T6 PO; +TRAM50TA2 PO
--- NOTE | 2017-07-27 21:18 | NUR ---
MAVIS OTERO FROM [facility] NURSING. PRESENTS W/ L GREATER TOE PAIN, HX OF ESRD AND DIABETES. L GREATER TOE APPEARS NECROTIC. NO LOSS OF SENSATION ENDORSED. GOWNED AND PLACED ON MONITOR. AWAITING MD COTTER.
--- NOTE | 2017-07-27 22:40 | NUR ---
IV LINE STARTED BLOOD DRAWN AND SENT TO LAB.
[2017-07-27 23:00] LABS: BASOPHILS % (AUTO) 0.2 % (0.0-2.0); EOSINOPHILS # (AUTO) 0.2 /CMM (0.0-0.7); EOSINOPHILS % (AUTO) 1.5 % (0.0-6.0); HEMATOCRIT 48 % (39-51); HEMOGLOBIN 15.7 g/dL (13.5-17.5); LYMPHOCYTES # (AUTO) 2.2 /CMM (0.8-4.8); LYMPHOCYTES % (AUTO) 20.3 % (20.0-44.0); MEAN CORPUSCULAR HEMOGLOBIN 31 PG (26.0-33.0); MEAN CORPUSCULAR HGB CONC 33 g/dl (31.0-36.0); MEAN CORPUSCULAR VOLUME 93 fL (80-96); MONOCYTES # (AUTO) 1.6 /CMM (0.1-1.30); MONOCYTES % (AUTO) 14.5 % (2.0-12.0); NEUTROPHILS # (AUTO) 6.9 /CMM (1.8-8.9); NEUTROPHILS % (AUTO) 63.5 % (43.0-81.0); PLATELET COUNT (AUTO) 228 /CMM (150-450); RDW COEFFICIENT OF VARIATION 16.3 (11.5-15.0); RED BLOOD CELL COUNT(AUTO) 5.15 MIL/uL (4.5-6.0); WHITE BLOOD COUNT (AUTO) 10.8 K/uL (4.3-11.0)
--- NOTE | 2017-07-27 23:23 | NUR ---
RADIOLOGY AT BEDSIDE FOR L BIG TOE XRAY.
[2017-07-27 23:26] LABS: ALANINE AMINOTRANSFERASE 39 U/L (12-78); ALBUMIN 3.1 g/dL (3.4-5.0); ALKALINE PHOSPHATASE 189 U/L (46-116); ASPARTATE AMINOTRANSFERASE 25 U/L (15-37); BILIRUBIN,DIRECT 0.2 mg/dL (0.0-0.2); BILIRUBIN,TOTAL 0.7 mg/dL (0.2-1.0); CARBON DIOXIDE 32 mmol/L (21-32); CHLORIDE 95 mmol/L (98-107); GLUCOSE 137 mg/dL (74-106); SODIUM SERUM 135 mmol/L (136-145); UREA NITROGEN, BLOOD 64 mg/dL (7-18)
[2017-07-27 23:28] LABS: CREATININE 7.7 mg/dL (0.6-1.3); POTASSIUM 6.2 mmol/L (3.5-5.1)
--- NOTE | 2017-07-27 23:45 | NUR ---
RECIEVED REPORT FROM YOLANDA FRANCE FOR KOSTA, PT RELAXING IN BED, NAD NOTED, PT FAMILY AT BEDSIDE, PT ON MONITOR, WILL CONTINUE TO MONITOR.
--- NOTE | 2017-07-27 23:56 | NUR ---
REPORT TO CHARGE NURSE HARDEEP FOR KOSTA.
--- NOTE | 2017-07-28 01:15 | NUR ---
CALLED PATT FOR PICKUP TO [facility], ETA 90 MINUTES TRIP #[phone]
--- NOTE | 2017-07-28 01:30 | NUR ---
Patient is resting comfortably in bed with eyes closed. Easily aroused. VSS
--- NOTE | 2017-07-28 03:00 | NUR ---
REPORT GIVEN TO EMT
[2017-07-28 03:29] VITALS: BP 148/87
== END 2017-07-28 03:00 ==
LOC: ER 21:01
DX: E11.52 Type 2 diabetes mellitus with diabetic peripheral angiopathy with gangrene (principal); I96 Gangrene, not elsewhere classified; E11.40 Type 2 diabetes mellitus with diabetic neuropathy, unspecified; E87.5 Hyperkalemia; M19.072 Primary osteoarthritis, left ankle and foot; E11.22 Type 2 diabetes mellitus with diabetic chronic kidney disease; I12.0 Hypertensive chronic kidney disease with stage 5 chronic kidney disease or end stage renal disease; N18.6 End stage renal disease; Z79.4 Long term (current) use of insulin; Z93.3 Colostomy status; Z79.82 Long term (current) use of aspirin
CPT/HCPCS: 36415; 73660; 80048; 80076; 83605; 85025; 87040 ×2; 93005; 99285; A4606; Z7610

== ENCOUNTER 2021-01-18 02:59 | Inpatient (IN) | payer MEDICARE, OTHER ==
[~2021-01-18] VITALS: Ht 154.9 cm; Wt 79.4 kg
[~2021-01-18 02:59] MED LIST changes: -MELA3TAB PO; +MELA3TAB41 PO
--- NOTE | 2021-01-18 03:04 | NUR ---
pt bibpa c/o lower abd pain x3 days. Pt aaox4 breathing evenly and unlabored. Upon assessment, pt has left upper extremity dialysis fistual and colostomy bag. Pt does dialysis TTHS and did receive his dialysis on tuesday. MD at bedside for eval. Pt attached to monitor and pox. Pt given call light within reach.
--- NOTE | 2021-01-18 03:07 | NUR ---
blood sent to lab
[2021-01-18] MEDS ORDERED: ONDANSETRON HCL/PF 4 MG/2 ML VIAL ONE (03:27)
[2021-01-18] MEDS ORDERED: MORPHINE SULFATE INJ 4 MG/ML DISP.SYRIN ONE (03:27)
[2021-01-18] MEDS ORDERED: MORPHINE SULFATE INJ 2 MG/ML DISP.SYRIN IV ONE (03:30)
[2021-01-18] MEDS ORDERED: ONDANSETRON HCL/PF 4 MG/2 ML VIAL IVP ONE (03:30)
[2021-01-18 03:34] LABS: BASOPHILS # (AUTO) 0.1 K/uL (0.0-0.2); BASOPHILS % (AUTO) 0.6 % (0.0-2.0); EOSINOPHILS % (AUTO) 1.1 % (0.0-6.0); HEMATOCRIT 36 % (39-51); HEMOGLOBIN 12.1 g/dL (13.5-17.5); LYMPHOCYTES # (AUTO) 1.1 K/uL (0.8-4.8); LYMPHOCYTES % (AUTO) 14.1 % (20.0-44.0); MEAN CORPUSCULAR HGB CONC 34 g/dl (31.0-36.0); MEAN CORPUSCULAR VOLUME 96 fL (80-96); MONOCYTES # (AUTO) 1.9 K/uL (0.1-1.30); MONOCYTES % (AUTO) 24.8 % (2.0-12.0); NEUTROPHILS # (AUTO) 4.6 K/uL (1.8-8.9); NEUTROPHILS % (AUTO) 59.4 % (43.0-81.0); PLATELET COUNT (AUTO) 234 K/uL (150-450); RED BLOOD CELL COUNT(AUTO) 3.75 MIL/uL (4.5-6.0); WHITE BLOOD COUNT (AUTO) 7.8 K/uL (4.3-11.0)
--- NOTE | 2021-01-18 03:39 | NUR ---
at bedside for stool sample
[2021-01-18 03:57] LABS: CALCIUM, SERUM 9.5 mg/dL (8.5-10.1); CARBON DIOXIDE 31 mmol/L (21-32); SODIUM SERUM 136 mmol/L (136-145)
[2021-01-18 04:03] LABS: ALANINE AMINOTRANSFERASE 39 U/L (12-78); ALBUMIN 2.6 g/dL (3.4-5.0); ALKALINE PHOSPHATASE 291 U/L (46-116); ASPARTATE AMINOTRANSFERASE 31 U/L (15-37); BILIRUBIN,DIRECT 0.2 mg/dL (0.0-0.2); BILIRUBIN,TOTAL 0.4 mg/dL (0.2-1.0); LIPASE 327 U/L (73-393); TOTAL PROTEIN, SERUM 7.8 g/dL (6.4-8.2)
[2021-01-18 04:06] LABS: CHLORIDE 96 mmol/L (98-107); GLUCOSE 194 mg/dL (74-106)
[2021-01-18 04:07] LABS: CREATININE 5.4 mg/dL (0.6-1.3); UREA NITROGEN, BLOOD 42 mg/dL (7-18)
--- NOTE | 2021-01-18 04:20 | NUR ---
taken to radiology
--- NOTE | 2021-01-18 04:29 | NUR ---
returned from radiology
[2021-01-18] MEDS ORDERED: LIDOCAINE 2% JEL UROJET 10 ML MM ONE (04:31)
[2021-01-18] MEDS ORDERED: IV NS 0.9% 250 ML IV ONE (04:32)
[2021-01-18] MEDS ORDERED: IOHEXOL-300 100 ML VIAL IV ONE (04:32)
[2021-01-18] MEDS ORDERED: CT SWABBABLE VALVE TRANS SET 1 EA INFUS.SET MC ONE (04:32)
--- NOTE | 2021-01-18 04:45 | NUR ---
urine sent to lab
[2021-01-18 04:54] LABS: LYMPHOCYTES % (MANUAL) 19 % (16-48); MONOCYTES % (MANUAL) 23 % (0-11.0); NEUTROPHILS % (MANUAL) 58 (42-76)
[2021-01-18 04:59] LABS: BILIRUBIN,URINE SMALL (NEGATIVE); COLOR,URINE YELLOW (YELLOW); LEUKOCYTE ESTERASE ,URINE MODERATE (NEGATIVE); NITRITE, URINE NEGATIVE (NEGATIVE); PROTEIN,URINE >=300 mg/dl (NEGATIVE); UGLUCOSE NEGATIVE (NEGATIVE); UROBILINOGEN,URINE 0.2 EU/dL (0.2)
[2021-01-18 05:10] LABS: BACTERIA,URINE Moderate /HPF (None Seen); SQUAMOUS EPITHELIAL CELL,UR Few /HPF (None Seen); WBC,URINE 81-100 /HPF (0-3)
--- NOTE | 2021-01-18 05:21 | NUR ---
called mirza to have images read
[2021-01-18 05:23] LABS: OCCULT BLOOD STOOL NEGATIVE (NEGATIVE)
[2021-01-18] MEDS ORDERED: CEFTRIAXONE 1GM BAG (ER ONLY) 1 GM/50 ML PIGGYBACK IV ONE (05:30)
[2021-01-18] MEDS ORDERED: CEFTRIAXONE 1GM BAG (ER ONLY) 50 ML IV ONE (05:34)
--- NOTE | 2021-01-18 05:43 | NUR ---
called mirza to have image read
--- NOTE | 2021-01-18 06:07 | NUR ---
covid swab sent to lab
[2021-01-18] MEDS ORDERED: MAGNESIUM HYDROXIDE 30 ML UDC PO PRN (06:30)
[2021-01-18] MEDS ORDERED: ACETAMINOPHEN 325 MG TABLET PO PRN (06:30)
[2021-01-18] MEDS ORDERED: ZOLPIDEM TARTRATE 5 MG TABLET PO PRN (06:30)
[2021-01-18] MEDS ORDERED: ONDANSETRON HCL/PF 4 MG/2 ML VIAL IVP PRN (06:30)
[2021-01-18] MEDS ORDERED: IV NS 0.9% 1,000 ML IV PRN (06:30)
[2021-01-18] MEDS ORDERED: Z GUARD REMEDY 2 OZ OINT TP PRN (06:30)
--- NOTE | 2021-01-18 07:05 | NUR ---
gave report to wilmer monahan for cleopatra
[2021-01-18] MEDS ORDERED: LISI20TA30 PO (07:58)
[2021-01-18] MEDS ORDERED: ERGO500093 PO (07:58)
[2021-01-18] MEDS ORDERED: INSU100V3 SQ (07:58)
[2021-01-18] MEDS ORDERED: GLIP5TAB13 PO (07:58)
[2021-01-18] MEDS ORDERED: DORZ10DR11 LEFTEYE (07:58)
[2021-01-18] MEDS ORDERED: CYAN-6 IM (07:58)
[2021-01-18] MEDS ORDERED: CLON0.1T PO (07:58)
--- NOTE | 2021-01-18 08:03 | NUR ---
room 119-1
[2021-01-18] MEDS ORDERED: ACET-868 PO (08:05)
--- NOTE | 2021-01-18 09:05 | NUR ---
wheeled patient via gurney accompanied by emt in no distress. RN at bedside to assume care.
--- NOTE | 2021-01-18 09:06 | NUR ---
RN NOTES PATIENT TRANSFERRED TO UNIT AT ROOM 119-1 VIA RNEY, ACCOMPANIED BY 1 ER NURSE. PATIENT ABLE TO AMBULATE TO BED W/ ASSIST. NOTED W/ COLOSTOMY BAG AND NGUYEN AV FISTULA. CURRENTLY TOLERATING ROOM AIR. NO COMPLAINT OF PAIN AT THIS TIME. A/O X4, GREEK-SPEAKING AND ABLE TO MAKE NEEDS KNOWN. VS TAKEN. ORIENTED TO ROOM AND USE OF CALL LIGHT BUTTON FOR STAFF ASSISTANCE. SAFETY MEASURES IMPLEMENTED. WILL CONTINUE TO MONITOR.
[2021-01-18 09:14] VITALS: BP 137/73
--- NOTE | 2021-01-18 11:40 | NUR ---
RN NOTES PATIENT WAS SEEN BY DR. MEIER TODAY.
[2021-01-18] MEDS ORDERED: HYDROCODONE/APAP 5/325MG TABLET PO PRN (12:00)
[2021-01-18] MEDS: METRONIDAZOLE 500MG/ NS 100ML 500 MG in PREMIX 1 EA IV SCH ×2 (12:38→17:07)
--- NOTE | 2021-01-18 17:50 | NUR ---
RN NOTES INFORMED DR. MEIER OF MED RECON FOR PATIENT.
--- NOTE | 2021-01-18 18:11 | NUR ---
RN NOTES COLOSTOMY BAG CHANGED SECONDARY TO SOILING; NOTED W/ 200CC GREENISH-BROWN STOOL OUTPUT. OSTOMY SITE CLEANED; NO ADVERSE CHANGE NOTED. PROCEDURE TOLERATED WELL BY PATIENT.
--- NOTE | 2021-01-18 18:35 | NUR ---
RN NOTES SPOKE W/ PATIENT'S DTR DAYANA ([phone]) AND UPDATED ABOUT PATIENT'S CONDITION/PROGRESS.
--- NOTE | 2021-01-18 19:45 | NUR ---
RN NOTE PT RECEIVED IN BED. CURRENTLY ON ROOM AIR SHOWING NO S/S OF RESPIRATORY DISTRESS/SOB. CURRENTLY A&OX3-4. COLOSTOMY NOTED. PT IS ABLE TO AMBULATE WITH ASSISTANCE, AND SKIN IS INTACT. CURRENTLY ON RENAL STANDARD DIET. RIGHT AC GAUGE 20 NOTED, FLUSHED, PATENT, AND INTACT WITH NO SIGNS OF INFILTRATION. ALL SAFETY MEASURES IMPLEMENTED. CALL LIGHT WITHIN REACH. BED ALARM ON. BED LOCKED AND IN LOWEST POSITION. WILL CONTINUE TO MONITOR THROUGHOUT THE SHIFT.
[2021-01-18 20:00] VITALS: BP 104/88
[2021-01-19] MEDS: METRONIDAZOLE 500MG/ NS 100ML 500 MG in PREMIX 1 EA IV SCH ×5 (00:24→23:35)
[2021-01-19 04:00] VITALS: BP 124/55
[2021-01-19] MEDS ORDERED: CEFTRIAXONE 1 G VIAL ONE (05:31)
[2021-01-19] MEDS: CEFTRIAXONE 1 G in IV D5W 50 ML IV SCH (05:37)
--- NOTE | 2021-01-19 06:43 | NUR ---
RN NOTE NO CHANGES IN PT CONDITION DURING SHIFT. PT IS ON ROOM AIR WITH NO S/S OF RESP DISTRESS/SOB. CURRENTLY A&OX4. COLOSTOMY NOTED. SKIN INTACT. PT HAS RIGHT AC GAUGE 20 FLUSHED, PATENT, AND INTACT. NO INFILTRATION. PT KEPT CLEAN AND COMFORTABLE. ALL DUE MEDS GIVEN ORDERED. ALL SAFETY MEASURES IMPLEMENTED. BED LOCKED AND IN LOWEST POSITION. BED ALARM ON. CALL LIGHT WITHIN REACH. WILL ENDORSE TO MORNING SHIFT RN FOR KOSTA.
[2021-01-19 07:43] LABS: CHOLESTEROL 115 mg/dL (<200); HDL CHOLESTEROL 14 mg/dL (40-60); LDL 52 mg/dL (0-99); TRIGLYCERIDES 191 mg/dL (30-150)
[2021-01-19 07:59] LABS: CALCIUM, SERUM 9.4 mg/dL (8.5-10.1); CARBON DIOXIDE 27 mmol/L (21-32); CHLORIDE 98 mmol/L (98-107); GLUCOSE 165 mg/dL (74-106); MAGNESIUM 2.1 mg/dL (1.8-2.4); PHOSPHORUS 4.5 mg/dL (2.5-4.9); POTASSIUM 4.3 mmol/L (3.5-5.1); SODIUM SERUM 135 mmol/L (136-145); UREA NITROGEN, BLOOD 59 mg/dL (7-18)
--- NOTE | 2021-01-19 08:00 | NUR ---
RN OPENING NOTE PT IS AWAKE IN BED RESTING. ON RA WITH NO SOB OR RESPIRATORY DISTRESS PRESENT. A/O X4 AND UNDERSTANDS SAMMARINESE. NO COMPLAINT OF PAIN OR NAUSEA. NO HOSPITALITY TEAM MEMBER PRESENT. NO EDEMA PRESENT. COLOSTOMY BAG PRESENT AND FILLS WITH SOFT BROWN STOOL. AMBULATORY WITH STANDBY ASSIST. SKIN IS INTACT. IV PRESENT ON R AC 20G AND FLUSHES WELL. IV FLUIDS TO KEEP VEIN OPEN. NGUYEN HD CATH PRESENT. HD PLANNED FOR TODAY. LABS AND ORDERS REVIEWED. SAFETY MEASURES IN PLACE. SIDE RAILS RAISED. BED LOWERED. CALL LIGHT WITHIN REACH. WILL CONTINUE TO MONITOR.
[2021-01-19 08:26] LABS: BASOPHILS % (AUTO) 0.4 % (0.0-2.0); EOSINOPHILS % (AUTO) 1.7 % (0.0-6.0); HEMATOCRIT 37 % (39-51); HEMOGLOBIN 12.2 g/dL (13.5-17.5); LYMPHOCYTES # (AUTO) 1.2 K/uL (0.8-4.8); LYMPHOCYTES % (AUTO) 11.2 % (20.0-44.0); MEAN CORPUSCULAR HGB CONC 33 g/dl (31.0-36.0); MEAN CORPUSCULAR VOLUME 97 fL (80-96); MONOCYTES # (AUTO) 1.7 K/uL (0.1-1.30); MONOCYTES % (AUTO) 15.9 % (2.0-12.0); NEUTROPHILS # (AUTO) 7.8 K/uL (1.8-8.9); NEUTROPHILS % (AUTO) 70.8 % (43.0-81.0); PLATELET COUNT (AUTO) 245 K/uL (150-450); RED BLOOD CELL COUNT(AUTO) 3.82 MIL/uL (4.5-6.0)
[2021-01-19 09:04] LABS: CREATININE 7.6 mg/dL (0.6-1.3)
[2021-01-19 10:26] LABS: LYMPHOCYTES % (MANUAL) 14 % (16-48); MONOCYTES % (MANUAL) 12 % (0-11.0); NEUTROPHILS % (MANUAL) 74 (42-76)
[2021-01-19 12:00] VITALS: BP 149/71
--- NOTE | 2021-01-19 15:05 | NUR ---
Electrician consult: flight attendant inflight services consult requested for discharge planning. Patient is a 75-year-old, male. SW met with patient at his bedside in the med-surg unit. Patient was resting upon arrival. Patient was alert and oriented x4. Per chart, patient was brought in by ambulance on 01/18/21 for a UTI. Patient is currently living at [facility] ([address] [place] [address]; [phone]). SW discussed discharge plans with the patient. Patient stated that he plans to return to his prior living arrangement at the time of discharge. Patient expressed his concerns regarding his attendance of his regular dialysis visits. Patient requested to receive dialysis at [facility] or was planning to attend his dialysis visit tomorrow, 01/20/21. SW notified patient's RN, Tawanda. Patient received a call from his daughter, Lacy, . Patient provided SW with the phone and asked SW to speak with his daughter. SW confirmed the patient's discharge plan with Lacy. Patient will return to [facility] at the time of discharge. Patient has regular dialysis visits on Tuesday, Tuesday, and Tuesday. Patient is provided transportation to [facility] which is arranged by [facility]. Patient currently uses a walker, but uses a wheelchair when "he feels weak after dialysis." RONAL offered the patient senior resources. Patient accepted the resources and thanked RONAL. PLAN: Patient will return to his prior living arrangement at [facility] at the time of discharge. No SS intervention at this time, however, SW will remain available as needed. SENIOR RESOURCES: ABUSE PREVENTION: ELDER ABUSE HOTLINE (10/01) ADULT PROTECTIVE SERVICES HOTLINE LONG-TERM CARE [facility] Region AREA ON AGING (HOTLINE) ADULT DAY HEALTH CARE CARE CENTERS: Private pay or Medi-shaw funded adult day care [place] Adult Day Health Care [facility] , [facility] , [facility] Adult Care Center , [facility] Day Health Care , [facility] Adult Day [facility] , [facility] Adult Daycare Center , [place] [facility] Generation Center , Jesús Lopez [facility] , [place] ALZHEIMERS DISEASE/DEMENTIA: Alzheimers Association Helpline [facility] Chapter www.alz.org/[facility] Department of Aging www.lacity.org Family Caregiver Meally www.caregiver.org [place] Caregiver Resources Center/Family Support www.[facility].org CANCER RESOURCES: [place] Cancer Society www.cancer.org Cancer Support Community www.CancerSupportVvsb.org: CancerCare www.cancercare.org [facility] Cancer Support Center www.[facility].org COMMUNITY HEALTH ASSOCIATIONS: AARP www.aarp.org ALS Association (ask for Brianna) www.als.org [place] Diabetes Association www.diabetes.org [place] Heart Association www.heart.org [place] Lung Association www.lungusa.org [place] Parkinson Disease Association www.apdaparkinson.org [place] Elbert , www.redcross.org Arthritis Foundation www.arthritis.org Crohns & Colitis Foundation of [place] www.ccfa.org/chapters/tigre National Multiple Sclerosis Society www.nationalmssociety.org Myasthenia Gravis Foundation www.myasthenia-ca.org National Stroke Association www.stroke.org CONSERVATORSHIP & GUARDIANSHIP: AARP Yesika Hong Legal Services Center for Health Care Rights Eldercare Information and Referral Network Account Manager Foundation [facility]: [facility] Bar Referral Service [facility] Legal Services Office of the Public Guardian [place] EYESIGHT DISORDER RESOURCES: [place] Macular Degeneration Foundation [facility] www.[facility].org GRIEF AND BEREAVEMENT RESOURCES: The [facility] , [facility], [place] THE [facility] , [facility]ment Center , Hasty HEARING DISORDER RESOURCES: [place] Telephone Access Program Deaf and Disabled Telecommunications Program www.ddtp.[facility].ca.gov HearRx Hearing Centers ([place]) Better Hearing Systems , Hasty GLAD ([facility] Agency on Deafness) V/ TTY; Beer Cooler , City [facility] Hope, [place] Hearing [facility] -low income hearing aid assistance www.Avuxiohiohealth grady memorial hospitalringfoundation.org [place] [facility] , Zoran HELP AT HOME CAREGIVER SUPPORT: In Home Support Services (Must have Medi-Shaw to be eligible) *Ask for a list of agencies that provide services to assist with care in the home. Local Senior Centers also have listings of care providers. HOME SAFETY MODIFICATIONS AND EQUIPMENT: Senior centers have additional referrals. [place] Housing and Community Investment Dept. Handyworker Program (low income) or Visit http://hcidla.lacity.org/mma-kuucnb-kt for more information National Seating and Mobility and/or ; Forever Active www.foreveractivemed.Kiyon Stay Home Safe www.StayhomGem Pharmaceuticals.Kiyon LIFE ALERT RESPONSE SYSTEM: Excel Business Intelligence Services 663-230-3940 www. UrbanFarmers Life Alert 107-691-1916 wwwFromUs Life Station 797-952-7177 www.Hallation.Kiyon Safe Return 051-776-0329 www.alz.or/safereturn Cell Phones for Seniors www.NeuroVigil MEALS AND FOOD PROGRAMS: [place] Meals on Wheels [phone] [place] Meals on Wheels [phone] [facility] [phone] [place] to the Homebound [phone] [place] to the Homebound [phone] [facility] to the Homebound [phone] Merged With [facility] to the Homebound [phone] [facility] Center[facility]s [phone] [facility] [phone] ONE Generation [phone] [facility] [phone] [facility] [phone] Meals on Wheels [phone] For all ages: $6.85/ meal w side. Delivered M-F from 10 am-1pm. Application and payment is done over the phone. Frozen meals available for weekends. Emergency Food [facility] [phone] [facility] Electrician [phone] [facility] [phone] Huy [facility]- Brown bag lunches [phone] [facility] [phone] MEAL/GROCERY DELIVERY PROGRAMS: [facility] [phone]- [facility] [phone] Magic Kitchen [phone] Moms Meals [phone] (ask Oscar for Discount Select grocery stores may provide delivery. MEDICAL INSURANCE SUPPORT SERVICES: Center for Health Care Rights [phone] Health Insurance Counseling/Advocacy Programs (HICAP)-Must have Medicare. Offers counseling for Medi-Shaw eligibility [phone] Department of Public Electrician 216-412-8702 www.[facility].ca.gov Medicare 075-999-9004 www.socialsecurity.org Social Security [phone] SENIOR ACTIVITY PROGRAMS: *Contact a local senior center, adult school, recreation facility or community college for education, fitness, recreation, and social programs. Aquatic Therapy and Adapted Exercise programs through [facility] [phone] Encore at [facility] [phone] www.[facility]/encore U- Senior Friends [phone] [place] Senior Programs [phone] www.oasisnet.org Suddenly 65 www.sztznolv53.com SENIOR CENTERS: [facility] [phone] [facility] Center[facility]s [phone] [facility] [phone] [facility] [phone] [facility] [phone] [facility] [phone] [facility] [phone] One Generation, [facility] [phone] [facility] [phone] [facility] [phone] [facility] [phone] [facility] [place] [phone] TRANSPORTATION: Local [facility] Centers may have applications for transportation programs and additional resources. ACCESS Services [phone] Transportation for seniors and disabled persons 7 days a week requiring 254 hr. advance reservation. Must apply and register for program chad eligible. CITY RIDE [phone] or [phone] Transportation for seniors and persons with ADA card/metro disabled card in the [facility]. M-F only. Must register for services. ONE GENERATION [phone] Serves 65 years + in conjunction with Foodilye program. Must be registered with both programs. A to B Transport [phone] Provides wheelchair/gurney van service. Adult Medical Transport [phone] Accepts Medi-shaw with prior authorization. Care Van [phone] Provides wheelchair Transport. [facility] Wide Transportation [phone] Provides gurney service [facility] [phone] Gurney Transport. [facility] Transportation [phone] wheelchair & gurney transport [facility] Transportation [phone] wheelchair & gurney transport [place] Non-Emergency Transport [phone] wheelchair & gurney transport [facility] Living [place] [phone] Short Term Transportation primarily for adults with disabilities on social security income. Nominal fee may apply and a reservation is required. City Cab [phone] or [phone] Marlin HEALBEi [phone] [place] [address] Referral Services -[phone] For additional programs & services
[2021-01-19 18:00] VITALS: BP 141/70
--- NOTE | 2021-01-19 18:18 | NUR ---
RN CLOSING NOTE PT IS AWAKE IN BED RESTING. ON RA WITH NO SOB OR RESPIRATORY DISTRESS PRESENT. A/O X4 AND UNDERSTANDS SERBIAN. NO COMPLAINT OF PAIN OR NAUSEA. NO LOSS PREVENTION LEAD PRESENT. NO EDEMA PRESENT. COLOSTOMY BAG PRESENT AND FILLS WITH SOFT BROWN STOOL. AMBULATORY WITH STANDBY ASSIST. SKIN IS INTACT. IV PRESENT ON R AC 20G AND FLUSHES WELL. IV FLUIDS TO KEEP VEIN OPEN. NGUYEN HD CATH PRESENT. HD PLANNED FOR TODAY. ROUTINE MEDS GIVEN. LABS AND ORDERS REVIEWED. SAFETY MEASURES IN PLACE. SIDE RAILS RAISED. BED LOWERED. CALL LIGHT WITHIN REACH. REPORT TO BE GIVEN TO NIGHT NURSE FOR KOSTA.
[2021-01-19 20:00] VITALS: BP 116/75
--- NOTE | 2021-01-19 20:17 | NUR ---
MS RN OPENING NOTE PATIENT A/OX4; ABLE TO MAKE NEEDS KNOWN. ON ROOMA AIR; TOLERATIN WELL WITH NO SOB. PATIENT DENIES PAIN OR DISCOMFORT AT THIS TIME. COLOSTOMY KEPT C/D/I. HD SHUNT NOTED TO NGUYEN. RAC #20G S/L; PATENT AND INTACT. AWAITING FOR DIALYSIS. PATIENT SAFETY MEASURES IN PLACE: BED IN LOWEST LOCKED POSITION, SIDE RAILS UPX2, CALL LIGHT WITHIN EASY REACH, BED ALARMS ON. PATIENT IN STABLE CONDITION, WILL CONTINUE PLAN OF CARE
[2021-01-19 22:00] VITALS: BP 132/57
--- NOTE | 2021-01-19 22:39 | NUR ---
MS RN NOTE PER DR. CALDERON, DIALYSIS IS ORDERED FOR TODAY. AWAITING FOR DIALYSIS. CHARGE NURSE ATTEMPTED TO CONTACT [facility] WITH NO RESPONSE. NOTIFIED PAUL LUEVANO. WILL PAGE YUMIKO.
--- NOTE | 2021-01-19 23:19 | NUR ---
MS FRANCE NOTE - CONSENT PATIENT SIGNED DIALYSIS CONSENT FORM. DIALYSIS SCHEDULED FOR 01/20/21 AM
[2021-01-20 04:00] VITALS: BP 118/52
[2021-01-20] MEDS: CEFTRIAXONE 1 G in IV D5W 50 ML IV SCH (06:12)
[2021-01-20] MEDS: METRONIDAZOLE 500MG/ NS 100ML 500 MG in PREMIX 1 EA IV SCH ×3 (06:12→17:16)
[2021-01-20 07:32] LABS: BASOPHILS # (AUTO) 0.1 K/uL (0.0-0.2); BASOPHILS % (AUTO) 0.6 % (0.0-2.0); EOSINOPHILS % (AUTO) 1.8 % (0.0-6.0); HEMATOCRIT 34 % (39-51); HEMOGLOBIN 11.3 g/dL (13.5-17.5); LYMPHOCYTES # (AUTO) 1.4 K/uL (0.8-4.8); LYMPHOCYTES % (AUTO) 11.4 % (20.0-44.0); MEAN CORPUSCULAR HGB CONC 33 g/dl (31.0-36.0); MEAN CORPUSCULAR VOLUME 95 fL (80-96); MONOCYTES # (AUTO) 1.3 K/uL (0.1-1.30); NEUTROPHILS # (AUTO) 9.1 K/uL (1.8-8.9); NEUTROPHILS % (AUTO) 75.2 % (43.0-81.0); PLATELET COUNT (AUTO) 285 K/uL (150-450); RED BLOOD CELL COUNT(AUTO) 3.55 MIL/uL (4.5-6.0); WHITE BLOOD COUNT (AUTO) 12.1 K/uL (4.3-11.0)
--- NOTE | 2021-01-20 07:46 | NUR ---
RN OPENING NOTE Pt is asleep, responsive to verbal and tactile stimuli. No respiratory distress, no SOB. NGUYEN AV fistula with clean dressing. Right AC 20G intact, flushes well. Safety precautions implemented, bed locked in lowest position, call light within reach.
--- NOTE | 2021-01-20 07:47 | NUR ---
MS RN CLOSING NOTE PATIENT A/OX4; ABLE TO MAKE NEEDS KNOWN. ON ROOM AIR; TOLERATING WELL WITH NO SOB. PATIENT DENIES PAIN OR DISCOMFORT AT THIS TIME. COLOSTOMY KEPT C/D/I. AV FISTULA NOTED TO NGUYEN. RAC #20G S/L; PATENT AND INTACT. AWAITING FOR DIALYSIS. PATIENT SAFETY MEASURES IN PLACE: BED IN LOWEST LOCKED POSITION, SIDE RAILS UPX2, CALL LIGHT WITHIN EASY REACH, BED ALARMS ON. PATIENT IN STABLE CONDITION, ENDORSED PLAN OF CARE TO ONCOMING MORNING RN
[2021-01-20 08:18] LABS: ALANINE AMINOTRANSFERASE 31 U/L (12-78); ALBUMIN 2.4 g/dL (3.4-5.0); ALKALINE PHOSPHATASE 262 U/L (46-116); ASPARTATE AMINOTRANSFERASE 19 U/L (15-37); BILIRUBIN,TOTAL 0.5 mg/dL (0.2-1.0); CALCIUM, SERUM 9.3 mg/dL (8.5-10.1); CARBON DIOXIDE 23 mmol/L (21-32); CHLORIDE 98 mmol/L (98-107); GLUCOSE 155 mg/dL (74-106); POTASSIUM 4.5 mmol/L (3.5-5.1); SODIUM SERUM 134 mmol/L (136-145); TOTAL PROTEIN, SERUM 6.8 g/dL (6.4-8.2); UREA NITROGEN, BLOOD 78 mg/dL (7-18)
[2021-01-20 08:24] LABS: CREATININE 9.6 mg/dL (0.6-1.3)
--- NOTE | 2021-01-20 10:39 | NUR ---
CALL DAUGHTER JOLIE WHEN PATIENT GETS DISCHARGED.
[2021-01-20 12:57] LABS: EOSINOPHILS % (MANUAL) 2 % (0-4); LYMPHOCYTES % (MANUAL) 13 % (16-48); MONOCYTES % (MANUAL) 10 % (0-11.0); MYELOCYTES % 1 % (0-0); NEUTROPHILS % (MANUAL) 74 (42-76)
[2021-01-20 16:00] VITALS: BP 119/60
--- NOTE | 2021-01-20 19:04 | NUR ---
RN CLOSING NOTE Pt is alert and oriented x 4, verbally responsive in sami. No respiratory distress noted, no SOB. HD tx done today, left upper arm AV fistula with clean dressing. Colostomy care done, bag changed. Right AC IV line patent, flushed and intact. Safety precautions implemented, bed locked in lowest position. Call light within reach. Will continue to incoming shift.
--- NOTE | 2021-01-20 19:48 | NUR ---
RN OPENING NOTE PATIENT A/OX4; ABLE TO MAKE NEEDS KNOWN. UKRAINIAN SPEAKER. ON ROOM AIR; TOLERATING WELL WITH NO SOB. PATIENT DENIES PAIN OR DISCOMFORT AT THIS TIME. COLOSTOMY KEPT C/D/I. HD SHUNT NOTED TO NGUYEN. RAC #20G S/L; PATENT AND INTACT. SAFETY MEASURES IN PLACE: BED IN LOWEST LOCKED POSITION, SIDE RAILS UPX2, CALL LIGHT WITHIN EASY REACH, BED ALARMS ON. PT ABLE TO AMBULATE WITH STEADY GAIT BUT ENCOURAGED TO CALL FOR ASSISTANCE. NO ACUTE DISTRESS NOTED AT THIS TIME.
[2021-01-21] VITALS: BP 123/61
[2021-01-21] MEDS: METRONIDAZOLE 500MG/ NS 100ML 500 MG in PREMIX 1 EA IV SCH ×4 (00:13→17:07)
[2021-01-21] MEDS: CEFTRIAXONE 1 G in IV D5W 50 ML IV SCH (05:01)
--- NOTE | 2021-01-21 06:29 | NUR ---
RN CLOSING NOTE PATIENT A/OX4; ABLE TO MAKE NEEDS KNOWN. TURKMEN SPEAKER. ON ROOM AIR; TOLERATING WELL WITH NO SOB. PATIENT DENIES PAIN OR DISCOMFORT AT THIS TIME. COLOSTOMY KEPT C/D/I. HD SHUNT NOTED TO NGUYEN. RAC #20G S/L; PATENT AND INTACT. ALL ORDERS AND NEEDS MET THROUGHOUT SHIFT. PT. ABLE TO SLEEP COMFORTABLY THROUGHOUT THE NIGHT. SAFETY MEASURES IN PLACE: BED IN LOWEST LOCKED POSITION, SIDE RAILS UPX2, CALL LIGHT WITHIN EASY REACH, BED ALARMS ON. PT ABLE TO AMBULATE WITH STEADY GAIT BUT ENCOURAGED TO CALL FOR ASSISTANCE. NO ACUTE DISTRESS NOTED AT THIS TIME. WILL ENDORSE CONTINUITY OF CARE TO MORNING SHIFT RN
[2021-01-21 06:43] LABS: BASOPHILS % (AUTO) 0.4 % (0.0-2.0); EOSINOPHILS % (AUTO) 1.6 % (0.0-6.0); HEMATOCRIT 35 % (39-51); HEMOGLOBIN 11.5 g/dL (13.5-17.5); LYMPHOCYTES # (AUTO) 1.5 K/uL (0.8-4.8); LYMPHOCYTES % (AUTO) 13.2 % (20.0-44.0); MEAN CORPUSCULAR HGB CONC 33 g/dl (31.0-36.0); MEAN CORPUSCULAR VOLUME 97 fL (80-96); MONOCYTES # (AUTO) 1.1 K/uL (0.1-1.30); MONOCYTES % (AUTO) 9.7 % (2.0-12.0); NEUTROPHILS # (AUTO) 8.7 K/uL (1.8-8.9); NEUTROPHILS % (AUTO) 75.1 % (43.0-81.0); PLATELET COUNT (AUTO) 317 K/uL (150-450); WHITE BLOOD COUNT (AUTO) 11.6 K/uL (4.3-11.0)
[2021-01-21 06:53] LABS: CALCIUM, SERUM 9.6 mg/dL (8.5-10.1); CARBON DIOXIDE 27 mmol/L (21-32); CHLORIDE 99 mmol/L (98-107); CREATININE 7.3 mg/dL (0.6-1.3); GLUCOSE 167 mg/dL (74-106); MAGNESIUM 2.1 mg/dL (1.8-2.4); PHOSPHORUS 4.9 mg/dL (2.5-4.9); POTASSIUM 4.4 mmol/L (3.5-5.1); SODIUM SERUM 137 mmol/L (136-145); UREA NITROGEN, BLOOD 52 mg/dL (7-18)
--- NOTE | 2021-01-21 07:43 | NUR ---
RN OPENING NOTES; RECEIVED PATIENT A/OX4; PT IS FINNISH SPEAKER, PT HAS NO C/O SOB IN ROOM AIR. NO PAIN OR DISCOMFORT NOTED, NO SIGNS OF DISTRESS. COLOSTOMY KEPT C/D/I. HD SHUNT NOTED TO NGUYEN. RAC #20G S/L; PATENT AND INTACT. SAFETY MEASURES IN PLACE: BED IN LOWEST LOCKED POSITION, SIDE RAILS UPX2, CALL LIGHT WITHIN EASY REACH, BED ALARMS ON. PT ABLE TO AMBULATE WITH STEADY GAIT BUT ENCOURAGED TO CALL FOR ASSISTANCE. WILL CONTINUE TO MONITOR.
[2021-01-21 08:00] VITALS: BP 113/69
[2021-01-21 16:00] VITALS: BP 117/76
--- NOTE | 2021-01-21 18:57 | NUR ---
RN CLOSING NOTES; PATIENT A/OX4; PT HAS NO C/O SOB IN ROOM AIR. NO PAIN OR DISCOMFORT NOTED, NO SIGNS OF DISTRESS. COLOSTOMY KEPT C/D/I. HD SHUNT NOTED TO NGUYEN. RAC #20G S/L; PATENT AND INTACT. SAFETY MEASURES IN PLACE: BED IN LOWEST LOCKED POSITION, SIDE RAILS UPX2, CALL LIGHT WITHIN EASY REACH, BED ALARMS ON. PT ABLE TO AMBULATE WITH STEADY GAIT BUT ENCOURAGED TO CALL FOR ASSISTANCE. ENDORSED TO PM RN.
--- NOTE | 2021-01-21 19:35 | NUR ---
RN NOTE PT RECEIVED IN BED. PT ON ROOM AIR SHOWING NO S/S OF RESP DISTRESS/SOB. BREATHING EVEN AND UNLABORED. CURRENTLY A&OX4.SKIN IS INTACT. PT ON RENAL DIET. PT HAS RIGHT AC GAUGE 20 FLUSHED, PATENT, AND INTACT WITH NO SIGNS OF INFILTRATION. LEFT UPPER ARM FISTULA NOTED WELL. ALL SAFETY MEASURES IMPLEMENTED. BED LOCKED AND IN LOWEST POSITION. BED ALARM ON. CALL LIGHT WITHIN REACH. WILL CONTINUE TO MONITOR THROUGHOUT THE SHIFT.
[2021-01-21 20:00] VITALS: BP 120/54
[2021-01-21 20:17] VITALS: BP 120/54
[2021-01-22] MEDS: METRONIDAZOLE 500MG/ NS 100ML 500 MG in PREMIX 1 EA IV SCH ×5 (00:33→23:36)
--- NOTE | 2021-01-22 02:00 | NUR ---
RN NOTE PT TRANSFERRED TO 3W. BEDSIDE REPORT GIVEN TO ROMÁN ORTEGA.
--- NOTE | 2021-01-22 02:00 | NUR ---
MS RN ADMITTING NOTE PT TRANSPORTED FROM [facility] BY STRETCHER TO UNIT AT THIS TIME BY THE RN AND ELECTRIC METER REPAIRER HELPER. REPORT RECEIVED AT BEDSIDE FROM [facility] RN, JUNITO. A/OX4, DANISH SPEAKING. ABLE TO MAKE NEEDS KNOWN. PT ON RA WITH NO SOB OR RESPIRATORY DISTRESS. PT DENIES PAIN OR DISCOMFORT. SKIN IS INTACT. IV ACCESS IN RAC G #20, INTACT, PATENT AND FLUSHING . NGUYEN AV FISTULA AND R SIDE COLOSTOMY BAG NOTED. ORIENTED PT TO STAFF, UNIT, AND ROOM. ALL BELONGINGS ACCOUNTED FOR. SAFETY PRECAUTIONS IN PLACE AND MAINTAINED AT ALL TIMES. BED IN LOWEST LOCKED POSITION. HOB ELEVATED. SIDE RAILS UP X2. CALL LIGHT AND TABLE WITHIN REACH. BED ALARM ON. WILL CONTINUE TO MONITOR
--- NOTE | 2021-01-22 06:30 | NUR ---
MS RN CLOSING NOTE PT AWAKE AND RESTING IN BED COMFORTABLY AT THIS TIME. PT REMAINED STABLE THROUGHOUT SHIFT. ALL NEEDS, MEDICATIONS, CARE ADMINISTERED ANTICIPATED PER ORDER. IV ACCESS INTACT, PATENT AND FLUSHING. OSTOMY CARE PERFORMED. SAFETY PRECAUTIONS IN LOWEST LOCKED POSITION, HOB ELEVATED, SIDE RAILS UP X2. CALL LIGHT AND TABLE WITHIN REACH. WILL ENDORSE TO DAY SHIFT NURSE FOR KOSTA.
[2021-01-22] MEDS: CEFTRIAXONE 1 G in IV D5W 50 ML IV SCH (06:36)
--- NOTE | 2021-01-22 07:08 | NUR ---
MS RN OPENING NOTE RECEIVED PT AWAKE IN BED. A/O X3. PT IS STABLE ON ROOM AIR. NO SOB OR S/S OF RESPIRATORY DISTRESS NOTED. PT HAS NO C/O PAIN OR DISCOMFORT AT THIS TIME AND WAS SLEEPING INTERMITTENTLY. IV ACCESS IN RIGHT AC G20, INTACT AND PATENT. WITH LEFT UPPER ARM AV FISTULA WTIH POSITIVE BRUIT/ THRILL. SAFETY MEASURES MAINTAINED. BED IN LOWEST LOCKED POSITION, HOB ELEVATED, SIDE RAILS UP X2. CALL LIGHT AND TABLE WITHIN REACH. WILL CONTINUE WITH PLAN OF CARE.
[2021-01-22 08:00] VITALS: BP 146/41
[2021-01-22 13:46] LABS: BASOPHILS # (AUTO) 0.1 K/uL (0.0-0.2); BASOPHILS % (AUTO) 0.5 % (0.0-2.0); EOSINOPHILS % (AUTO) 1.1 % (0.0-6.0); HEMATOCRIT 35 % (39-51); HEMOGLOBIN 11.3 g/dL (13.5-17.5); LYMPHOCYTES # (AUTO) 1.3 K/uL (0.8-4.8); LYMPHOCYTES % (AUTO) 9.4 % (20.0-44.0); MEAN CORPUSCULAR HGB CONC 33 g/dl (31.0-36.0); MEAN CORPUSCULAR VOLUME 97 fL (80-96); MONOCYTES % (AUTO) 7.4 % (2.0-12.0); NEUTROPHILS # (AUTO) 11.3 K/uL (1.8-8.9); NEUTROPHILS % (AUTO) 81.6 % (43.0-81.0); PLATELET COUNT (AUTO) 365 K/uL (150-450); RED BLOOD CELL COUNT(AUTO) 3.57 MIL/uL (4.5-6.0); WHITE BLOOD COUNT (AUTO) 13.9 K/uL (4.3-11.0)
[2021-01-22 13:47] LABS: CALCIUM, SERUM 9.2 mg/dL (8.5-10.1); CARBON DIOXIDE 26 mmol/L (21-32); CHLORIDE 100 mmol/L (98-107); CREATININE 6.7 mg/dL (0.6-1.3); GLUCOSE 203 mg/dL (74-106); PHOSPHORUS 4.2 mg/dL (2.5-4.9); POTASSIUM 4.8 mmol/L (3.5-5.1); SODIUM SERUM 138 mmol/L (136-145); UREA NITROGEN, BLOOD 45 mg/dL (7-18)
[2021-01-22 16:00] VITALS: BP 127/42
--- NOTE | 2021-01-22 19:00 | NUR ---
MS RN CLOSING NOTE PT AWAKE IN BED. A/O X3. PT IS STABLE ON ROOM AIR. NO SOB OR S/S OF RESPIRATORY DISTRESS NOTED. PT HAS NO C/O PAIN OR DISCOMFORT AT THIS TIME AND WAS SLEEPING INTERMITTENTLY. IV ACCESS IN RIGHT AC G20, INTACT AND PATENT. WITH LEFT UPPER ARM AV FISTULA WTIH POSITIVE BRUIT/ THRILL. SAFETY MEASURES MAINTAINED. BED IN LOWEST LOCKED POSITION, HOB ELEVATED, SIDE RAILS UP X2. CALL LIGHT AND TABLE WITHIN REACH. WILL ENDORSE PATIENT FOR CONTINUITY OF CARE.
--- NOTE | 2021-01-22 19:48 | NUR ---
MS RN OPENING NOTE PATIENT IN BED, A/OX4. NO S/S OF APPARENT DISTRESS -- SPO2 94%. NO C/O PAIN AT THIS TIME. ANTIBIOTIC RUNNING AT THE MOMENT. SAFETY IN PLACE. NO NEEDS AT THIS TIME. WILL CONTINUE TO MONITOR.
[2021-01-22 20:00] VITALS: BP 136/62
[2021-01-23] MEDS: METRONIDAZOLE 500MG/ NS 100ML 500 MG in PREMIX 1 EA IV SCH ×3 (05:07→21:05)
[2021-01-23] MEDS: CEFTRIAXONE 1 G in IV D5W 50 ML IV SCH ×2 (05:53→20:35)
--- NOTE | 2021-01-23 06:37 | NUR ---
MS RN CLOSING NOTE PATIENT IN BED WITH EYES CLOSED, EASY TO AROUSE. A/OX4. NO S/S OF APPARENT DISTRESS. NO C/O PAIN. PATIENT COLOSTOMY INTACT WITH OUTPUT OF 100 ML OF DARK, LIQUID STOOL. NO FLUIDS RUNNING AT THIS TIME. AV FISTULA CAN BE FELT WITH THRILL AND AUSCULTATED WITH BRUIT. PATIENT ANURIC -- NO UO FOR TODAY. HD SCHEDULED FOR TODAY, CONSENT SIGNED AND IN CHART. SAFETY KEPT IN PLACE THE WHOLE SHIFT: BED IN LOWEST LOCKED POSITION, CALL LIGHT WITHIN REACH. NO SIGNIFICANT CHANGE SINCE LAST SHIFT. ALL NEEDS ATTENDED, ALL SCHED MEDS ADMINISTERED. WILL ENDORSE CARE TO MORNING SHIFT RN.
--- NOTE | 2021-01-23 07:10 | NUR ---
MS RN OPENING NOTE RECEIVED PT AWAKE IN BED. A/O X3. PT IS STABLE ON ROOM AIR. NO SOB OR S/S OF RESPIRATORY DISTRESS NOTED. PT HAS NO C/O PAIN OR DISCOMFORT AT THIS TIME AND WAS SLEEPING INTERMITTENTLY. IV ACCESS IN RIGHT AC G20, INTACT AND PATENT. WITH LEFT UPPER ARM AV FISTULA WITH POSITIVE BRUIT/ THRILL. SAFETY MEASURES MAINTAINED. BED IN LOWEST LOCKED POSITION, HOB ELEVATED, SIDE RAILS UP X2. CALL LIGHT AND TABLE WITHIN REACH. WILL CONTINUE WITH PLAN OF CARE.
[2021-01-23 07:21] LABS: BASOPHILS % (AUTO) 0.3 % (0.0-2.0); EOSINOPHILS % (AUTO) 1.4 % (0.0-6.0); HEMATOCRIT 33 % (39-51); HEMOGLOBIN 11.1 g/dL (13.5-17.5); LYMPHOCYTES # (AUTO) 1.5 K/uL (0.8-4.8); LYMPHOCYTES % (AUTO) 11.5 % (20.0-44.0); MEAN CORPUSCULAR HGB CONC 33 g/dl (31.0-36.0); MEAN CORPUSCULAR VOLUME 96 fL (80-96); MONOCYTES # (AUTO) 1.2 K/uL (0.1-1.30); MONOCYTES % (AUTO) 8.8 % (2.0-12.0); NEUTROPHILS # (AUTO) 10.2 K/uL (1.8-8.9); PLATELET COUNT (AUTO) 395 K/uL (150-450); RED BLOOD CELL COUNT(AUTO) 3.47 MIL/uL (4.5-6.0); WHITE BLOOD COUNT (AUTO) 13.2 K/uL (4.3-11.0)
[2021-01-23 07:58] LABS: CALCIUM, SERUM 9.7 mg/dL (8.5-10.1); CARBON DIOXIDE 25 mmol/L (21-32); CHLORIDE 101 mmol/L (98-107); GLUCOSE 174 mg/dL (74-106); PHOSPHORUS 4.9 mg/dL (2.5-4.9); POTASSIUM 4.8 mmol/L (3.5-5.1); SODIUM SERUM 137 mmol/L (136-145); UREA NITROGEN, BLOOD 58 mg/dL (7-18)
[2021-01-23 08:00] VITALS: BP 131/77
[2021-01-23 08:30] LABS: CREATININE 7.9 mg/dL (0.6-1.3)
--- NOTE | 2021-01-23 15:51 | NUR ---
MS RN NOTE PATIENT SEEN BY DR. TANNER WITH NO NEW ORDER AT THIS TIME.
[2021-01-23] MEDS ORDERED: LEVO500T90 PO (16:09)
--- NOTE | 2021-01-23 16:30 | NUR ---
MS RN NOTE ORDER RECEIVED FROM DR. TANNER. PATIENT HEALTH TEACHING DONE REGARDING DISCHARGE AND DISCHARGE ORDERS. PATIENT VERBALIZED UNDERSTANDING. DOCUMENTS SIGNED AND ATTACHED TO CHART. WILL CONTINUE TO MONITOR PATIENT.
--- NOTE | 2021-01-23 18:14 | NUR ---
MS RN NOTE CALLED FACILITY TO ENDORSE PATIENT TO [facility] AND SPOKE WITH RIGOBERTO AND SAID THAT THE RN SOCIAL MEDIA SR STRATEGY MANAGER WILL ARRIVE AT 7PM TO RECEIVE THE REPORT. WILL TRY TO CALL AGAIN LATER. PATIENT STARTED DIALYSIS NOW AT BEDSIDE.
--- NOTE | 2021-01-23 19:15 | NUR ---
MS RN CLOSING NOTE RECEIVED PT AWAKE IN BED. A/O X3. PT IS STABLE ON ROOM AIR. NO SOB OR S/S OF RESPIRATORY DISTRESS NOTED. PT HAS NO C/O PAIN OR DISCOMFORT AT THIS TIME AND WAS SLEEPING INTERMITTENTLY. IV ACCESS IN RIGHT AC G20, INTACT AND PATENT. WITH LEFT UPPER ARM AV FISTULA PATIENT UNDERGOING HD NOW. SAFETY MEASURES MAINTAINED. BED IN LOWEST LOCKED POSITION, HOB ELEVATED, SIDE RAILS UP X2. CALL LIGHT AND TABLE WITHIN REACH. PATIENT ENDORSED TO ROMÁN RAMSAY OF THE [facility]. PATIENT FOR DISCHARGE AFTER HD. ENDORSED TO HOSE STRIPPER NURSE FOR CONTINUITY OF CARE.
--- NOTE | 2021-01-23 19:55 | NUR ---
MS RN OPENING NOTE PATIENT IN ROOM; A/OX 4; ABLE TO MAKE NEEDS KNOWN. TOLERATING ROOM AIR WELL WITH NO SOB. DENIES PAIN OR DISCOMFORT AT THIS TIME. RAC#20G; S/L PATENT AND INTACT. NGUYEN AV FISTULA; DIALYSIS COMPLETED WITH 2L OUTPUT. DIALYSIS NURSE MADHAVI AT BEDSIDE AND AV FISTULA DRESSING KEPT C/D/Y. ALL NEEDS MET AT THIS TIME. SAFETY MEASURES IN PLACE: BED IN LOWEST LOCKED POSITION: SIDE RAILS UPX2; AND CALL LIGHT WITHIN EASY REACH. PATIENT IN STABLE CONDITION; WILL CONTINUE PLAN OF CARE.
[2021-01-23 20:00] VITALS: BP 131/63
[2021-01-23 20:10] VITALS: BP 128/73
--- NOTE | 2021-01-23 22:27 | NUR ---
MS RAILROAD WATCHMAN NOTE PATIENT IN ROOM; A/OX 3; ABLE TO MAKE NEEDS KNOWN. TOLERATING ROOM AIR WELL WITH NO SOB. DENIES PAIN OR DISCOMFORT AT THIS TIME. RAC#20G; D/C; DRESSING KEPT C/D/I. NGUYEN AV FISTULA DRESSING KEPT C/D/I. COLOSTOMY BAG KEPT C/D/I. ALL NEEDS MET AT THIS TIME. GAVE REPORT TO NORA CULLEN. VSS. D/C INSTRUCTIONS GIVEN TO PATIENT AND PATIENT VERBALIZED UNDERSTANDING. ALL BELONGINGS BROUGHT WITH PATIENT. PATIENT D/C TO [facility]IA [facility].
== END 2021-01-23 22:35 | DRG 689 ==
LOC: ER 03:01 → MED 07:52 → MEDSG1 08:04 → MED 01-22 02:23
PROVIDERS: ATTEND Registered Nurse
PROC: 5A1D70Z Performance of Urinary Filtration, Intermittent, Less than 6 Hours Per Day (ICD-10-PCS; principal; 2021-01-19)
DX: N30.90 Cystitis, unspecified without hematuria (principal); N18.6 End stage renal disease; I12.0 Hypertensive chronic kidney disease with stage 5 chronic kidney disease or end stage renal disease; E44.0 Moderate protein-calorie malnutrition; E11.22 Type 2 diabetes mellitus with diabetic chronic kidney disease; Z20.822 Contact with and (suspected) exposure to COVID-19; E11.40 Type 2 diabetes mellitus with diabetic neuropathy, unspecified; N40.0 Benign prostatic hyperplasia without lower urinary tract symptoms; Z99.2 Dependence on renal dialysis; E78.5 Hyperlipidemia, unspecified; I25.10 Atherosclerotic heart disease of native coronary artery without angina pectoris; Z93.3 Colostomy status; Z95.1 Presence of aortocoronary bypass graft; Z79.899 Other long term (current) drug therapy; Z79.4 Long term (current) use of insulin; Z79.82 Long term (current) use of aspirin; D63.1 Anemia in chronic kidney disease; F17.200 Nicotine dependence, unspecified, uncomplicated; Z90.49 Acquired absence of other specified parts of digestive tract; M89.9 Disorder of bone, unspecified; B96.89 Other specified bacterial agents as the cause of diseases classified elsewhere; R19.7 Diarrhea, unspecified
CPT/HCPCS: 36415; 80048-TC; 80053-TC; 80061-TC; 80076-TC; 81001; 82272-TC; 82962-TC; 83605-TC; 83690-TC; 83735-TC; 84100-TC; 85025-TC; 85730-TC; 87040-TC; 87081-TC; 87086-TC; 90935-TC; A4216; C9803; G0378; J0696; J2270; J2405; J3490; J7030; J7050; J7060; Q9967; U0003

== ENCOUNTER 2021-03-09 10:42 | Inpatient (IN) | payer MEDICARE, OTHER ==
[~2021-03-09] VITALS: Ht 170.2 cm; Wt 71.4 kg
[~2021-03-09 10:42] MED LIST changes: -AMIN30LI2 PO; -ASPI-1169 PO; -CINA30TA2 PO; +CLON0.1T PO; +CYAN-6 IM; +DORZ10DR11 LEFTEYE; +ERGO500093 PO; -FAMO40TA7 PO; +GLIP5TAB13 PO; -INSU100I4 SQ; +INSU100V3 SQ; -LANT500T2 PO; +LEVO500T90 PO; +LISI20TA30 PO; -MELA3TAB41 PO; -PATI16.8 PO; -TRAM50TA2 PO
--- NOTE | 2021-03-09 10:56 | NUR ---
PT SEEN AND EXAMINED BY .
[2021-03-09] MEDS ORDERED: ASPI-1169 PO (11:13)
[2021-03-09] MEDS ORDERED: ACET-2605 PO (11:13)
[2021-03-09] MEDS ORDERED: CINA30TA2 PO (11:13)
[2021-03-09] MEDS ORDERED: LANT750T3 PO (11:13)
[2021-03-09] MEDS ORDERED: LIDOCAINE 2% JEL UROJET 10 ML MM ONE (11:14)
--- NOTE | 2021-03-09 11:30 | NUR ---
IN3WAY CATH INSERTED AND FLUSHED WITH NS. NOTED GOOD OUTPUT WHEN FLUSHING. BRIGHT RED WITH CLOTS. MD WAS NOTIFIED.
--- NOTE | 2021-03-09 11:30 | NUR ---
BIBPA FROM SNF TO ER BED 12. AAOX3. NOT IN RESP DSITRESS. BROUGHT IN FOR HEMATURIA. PT NOTED WITH DARK RED BLOOD. WAS AT THE BEDSIDE FOR EVAL.
[2021-03-09 11:32] LABS: BASOPHILS % (AUTO) 0.5 % (0.0-2.0); EOSINOPHILS % (AUTO) 1.9 % (0.0-6.0); HEMATOCRIT 39 % (39-51); HEMOGLOBIN 12.6 g/dL (13.5-17.5); LYMPHOCYTES # (AUTO) 1.5 K/uL (0.8-4.8); LYMPHOCYTES % (AUTO) 15.4 % (20.0-44.0); MEAN CORPUSCULAR HGB CONC 33 g/dl (31.0-36.0); MEAN CORPUSCULAR VOLUME 98 fL (80-96); MONOCYTES # (AUTO) 1.1 K/uL (0.1-1.30); MONOCYTES % (AUTO) 11.2 % (2.0-12.0); NEUTROPHILS # (AUTO) 6.9 K/uL (1.8-8.9); PLATELET COUNT (AUTO) 260 K/uL (150-450); RED BLOOD CELL COUNT(AUTO) 3.96 MIL/uL (4.5-6.0); WHITE BLOOD COUNT (AUTO) 9.7 K/uL (4.3-11.0)
[2021-03-09 11:48] LABS: ALANINE AMINOTRANSFERASE 78 U/L (12-78); ALKALINE PHOSPHATASE 303 U/L (46-116); ASPARTATE AMINOTRANSFERASE 33 U/L (15-37); BILIRUBIN,DIRECT 0.2 mg/dL (0.0-0.2); BILIRUBIN,TOTAL 0.5 mg/dL (0.2-1.0); CALCIUM, SERUM 8.9 mg/dL (8.5-10.1); CARBON DIOXIDE 27 mmol/L (21-32); CHLORIDE 91 mmol/L (98-107); GLUCOSE 321 mg/dL (74-106); POTASSIUM 5.4 mmol/L (3.5-5.1); SODIUM SERUM 130 mmol/L (136-145); TOTAL PROTEIN, SERUM 8.3 g/dL (6.4-8.2); UREA NITROGEN, BLOOD 70 mg/dL (7-18)
[2021-03-09 11:49] LABS: CREATININE 8.3 mg/dL (0.6-1.3)
--- NOTE | 2021-03-09 12:16 | NUR ---
Creatinine is 8.[address] Ruiz ok to do CT with contrast.
--- NOTE | 2021-03-09 12:34 | NUR ---
URINE OUTPUT 2200
[2021-03-09] MEDS ORDERED: IOHEXOL-300 100 ML VIAL IV ONE (12:38)
[2021-03-09] MEDS ORDERED: IV NS 0.9% 250 ML IV ONE (12:38)
[2021-03-09] MEDS ORDERED: CT SWABBABLE VALVE TRANS SET 1 EA INFUS.SET MC ONE (12:38)
[2021-03-09 12:41] LABS: BILIRUBIN,URINE Negative (NEGATIVE); COLOR,URINE RED (YELLOW); LEUKOCYTE ESTERASE ,URINE Small (NEGATIVE); NITRITE, URINE Negative (NEGATIVE); PROTEIN,URINE Negative (NEGATIVE); UGLUCOSE Negative (NEGATIVE); UROBILINOGEN,URINE 0.2 EU/dL (0.2)
[2021-03-09 12:51] LABS: BACTERIA,URINE Rare /HPF (None Seen); RBC,URINE 81-100 /HPF (0-2); SQUAMOUS EPITHELIAL CELL,UR 0-2 /HPF (None Seen)
[2021-03-09] MEDS ORDERED: ONDANSETRON HCL/PF 4 MG/2 ML VIAL IVP PRN (13:00)
[2021-03-09] MEDS ORDERED: CEFTRIAXONE 1 G in IV D5W 50 ML IV SCH (13:00)
[2021-03-09] MEDS ORDERED: ERGOCALCIFEROL (VITAMIN D 2) 50,000 UNIT CAPSULE PO SCH (13:00)
[2021-03-09] MEDS ORDERED: SODIUM POLYSTYRENE SULF. PWD 15 GM UDC PO ONE (13:00)
[2021-03-09] MEDS ORDERED: Z GUARD REMEDY 2 OZ OINT TP PRN (13:00)
[2021-03-09] MEDS ORDERED: ACETAMINOPHEN 325 MG TABLET PO PRN (13:00)
--- NOTE | 2021-03-09 13:16 | NUR ---
urine output 1200
--- NOTE | 2021-03-09 13:16 | NUR ---
bag # 2 of NS started
[2021-03-09] MEDS ORDERED: CEFTRIAXONE 1GM BAG (ER ONLY) 1 GM/50 ML PIGGYBACK IV ONE (13:30)
--- NOTE | 2021-03-09 14:06 | NUR ---
CALLED FOR ROOM
--- NOTE | 2021-03-09 14:50 | NUR ---
URINE OUTPUT NOTED AT 3200ML.
--- NOTE | 2021-03-09 14:50 | NUR ---
BAG # 3 NS FOR BLADDER IRRIGATION STARTED.
--- NOTE | 2021-03-09 15:23 | NUR ---
DR. LOYA AT BEDSIDE
--- NOTE | 2021-03-09 16:45 | NUR ---
URINE OUTPUT 3000ML.
--- NOTE | 2021-03-09 16:45 | NUR ---
BLADDER IRRIGATION STOPPED
--- NOTE | 2021-03-09 16:46 | NUR ---
PT'S URINE OUTPUT NOTED CLEARED AND NO HEMATURIA. PER DR. LOYA IRRIGATION MAY STOPPED IF THE OUT DOES NOT HAVE BLOOD.
--- NOTE | 2021-03-09 18:35 | NUR ---
GOING TO 114.3
--- NOTE | 2021-03-09 18:58 | NUR ---
NURSING SUP GAVE M/S BED 114-2. PLEASE CALL AFTER SHIFT CHANGE FOR REPORT.
--- NOTE | 2021-03-09 19:37 | NUR ---
RN NOTE REPORT RECEIVED BY ROMÁN MELENDEZ FOR KOSTA.
--- NOTE | 2021-03-09 19:38 | NUR ---
REPORT GIVEN TO ROMÁN WILD FOR KOSTA
[2021-03-09 20:00] VITALS: BP 143/78
--- NOTE | 2021-03-09 20:00 | NUR ---
PT TRANSPORTED TO UNIT ONGURNEY WITH EMT AT BEDSIDE ON STABLE CONDITION.
--- NOTE | 2021-03-09 20:01 | NUR ---
RN NOTE PT BROUGHT TO UNIT VIA GURNEY. PT IS ON ROOM AIR SHOWING NO S/S OF RESP DISTRESS/SOB. PT IS A/OX3-4. GAVLAN CATH NOTED WITH HEMATURIA. COLOSTOMY NOTED. PT IS ON RENAL DIET. RIGHT AC #18 FLUSHED, PATENT, AND INTACT WITH NO INFILTRATION. LEFT AV FISTULA NOTED. ALL SAFETY MEASURES IMPLEMENTED. CALL LIGHT WITHIN REACH. BED ALARM ON. BED LOCKED AND IN LOWEST POSITION. WILL CONTINUE TO MONITOR AND ASSESS FOR ANY CHANGES.
--- NOTE | 2021-03-09 20:50 | NUR ---
RN NOTE SPOKE WITH DR. THAKKAR ABOUT ER NOT GIVING ANY MEDICATIONS TO PT. DR. THAKKAR SAID TO ADMINISTER ROCEPHIN, SENSIPAR, AND TIMOLOL. WILL CARRY OUT ORDER.
[2021-03-09] MEDS: CEFTRIAXONE 1 G in IV D5W 50 ML IV SCH (21:27)
[2021-03-09] MEDS: CINACALCET HCL 30 MG TABLET PO SCH (21:28)
[2021-03-09] MEDS: TIMOLOL MAL/DORZOLAM HCL OPHTH 10 ML BOTTLE LEFTEYE SCH (21:28)
[2021-03-09] MEDS: LISINOPRIL (20MG) 20 MG TABLET PO SCH ×2 (22:00→22:45)
[2021-03-09] MEDS: ATORVASTATIN 40 MG TABLET PO SCH (22:44)
--- NOTE | 2021-03-09 23:06 | NUR ---
RN NOTE PT CURRENTLY RECEIVING HEMODIALYSIS, LISINOPRIL HELD DUE TO LOW BP OF 93/60.
[2021-03-10 04:00] VITALS: BP 122/52
--- NOTE | 2021-03-10 07:13 | NUR ---
RN NOTE NO CHANGES IN PT CONDITION DURING SHIFT. PT IS ON ROOM AIR SHOWING NO S/S OF RESP DISTRESS/SOB. PT IS A/OX3-4. HEMODIALYSIS DONE 03/09/21 AND DIALYSIS NURSE REMOVED 1220ML. RIGHT AC #18 FLUSHED, PATENT, AND INTACT WITH NO INFILTRATION. LEFT AV FISTULA NOTED. ALL DUE MEDS GIVEN ORDERED. PT KEPT CLEAN AND COMFORTABLE. ALL SAFETY MEASURES IMPLEMENTED. CALL LIGHT WITHIN REACH. BED ALARM ON. BED LOCKED AND IN LOWEST POSITION. WILL ENDORSE TO MORNING SHIFT RN FOR KOSTA.
[2021-03-10 07:22] LABS: BASOPHILS % (AUTO) 0.6 % (0.0-2.0); EOSINOPHILS % (AUTO) 2.3 % (0.0-6.0); HEMATOCRIT 40 % (39-51); LYMPHOCYTES # (AUTO) 1.3 K/uL (0.8-4.8); LYMPHOCYTES % (AUTO) 17.6 % (20.0-44.0); MEAN CORPUSCULAR HGB CONC 33 g/dl (31.0-36.0); MEAN CORPUSCULAR VOLUME 97 fL (80-96); MONOCYTES % (AUTO) 13.4 % (2.0-12.0); NEUTROPHILS # (AUTO) 5.1 K/uL (1.8-8.9); NEUTROPHILS % (AUTO) 66.1 % (43.0-81.0); PLATELET COUNT (AUTO) 268 K/uL (150-450); RED BLOOD CELL COUNT(AUTO) 4.07 MIL/uL (4.5-6.0); WHITE BLOOD COUNT (AUTO) 7.6 K/uL (4.3-11.0)
--- NOTE | 2021-03-10 07:31 | NUR ---
OPENING NOTES; RECEIVED PT SLEEPING IN BED. A/OX3. PT COLOSTOMY NOTED, SKIN INTACT. R AC#18 AND L AVF NOTED, WITH NOT SIGNS OF INFILTRATION. SAFETY MEASURES RENDERED, BED IN LOWEST POSITION, LOCKED, WITH CALL LIGHT WITHIN REACH. WILL CONTINUE TO MONITOR.
[2021-03-10] MEDS ORDERED: CEFTRIAXONE 1 G in IV D5W 50 ML IV SCH (08:00)
[2021-03-10] MEDS: glipiZIDE 5 MG TABLET PO SCH (08:06)
[2021-03-10] MEDS: FLUDROCORTISONE 0.1 MG TABLET PO SCH (08:06)
[2021-03-10] MEDS: TIMOLOL MAL/DORZOLAM HCL OPHTH 10 ML BOTTLE LEFTEYE SCH ×2 (08:09→17:05)
[2021-03-10 08:45] LABS: CHOLESTEROL 161 mg/dL (<200); HDL CHOLESTEROL 27 mg/dL (40-60); LDL 94 mg/dL (0-99); TRIGLYCERIDES 234 mg/dL (30-150)
[2021-03-10 08:54] LABS: ALANINE AMINOTRANSFERASE 73 U/L (12-78); ALBUMIN 2.9 g/dL (3.4-5.0); ALKALINE PHOSPHATASE 295 U/L (46-116); ASPARTATE AMINOTRANSFERASE 33 U/L (15-37); BILIRUBIN,TOTAL 0.5 mg/dL (0.2-1.0); CALCIUM, SERUM 9.1 mg/dL (8.5-10.1); CARBON DIOXIDE 28 mmol/L (21-32); CHLORIDE 97 mmol/L (98-107); GLUCOSE 191 mg/dL (74-106); MAGNESIUM 2.3 mg/dL (1.8-2.4); POTASSIUM 4.5 mmol/L (3.5-5.1); SODIUM SERUM 136 mmol/L (136-145); TOTAL PROTEIN, SERUM 8.2 g/dL (6.4-8.2); UREA NITROGEN, BLOOD 33 mg/dL (7-18)
[2021-03-10] MEDS: DOCUSATE SODIUM 100 MG CAPSULE PO SCH ×2 (09:03→17:06)
[2021-03-10 12:00] VITALS: BP 154/79
[2021-03-10] MEDS: CINACALCET HCL 30 MG TABLET PO SCH (17:06)
--- NOTE | 2021-03-10 18:11 | NUR ---
RN CLOSING NOTES; PT A/OX3, PT TURKISH SPEAKING BUT CAN MAKE HIS NEEDS KNOWN. CONTINUE TO MONITOR FOR HEMATURIA. CONTINUOUS IRRIGATION DONE AND WAS ABLE TO TOLERATE IT WELL. NO SIGNIFICANT CHANGES DURING SHIFT. SAFETY MEASURES RENDERED, BED IN LOWEST POS. LOCKED, WITH CALL LIGHT WITHIN REACH. ENDORSED TO METAL FURNITURE ASSEMBLY SUPERVISOR RN IN STABLE CONDITION.
--- NOTE | 2021-03-10 19:55 | NUR ---
MS RN OPENING RECEIVED PATIENT IN BED, A/OX3, ROMANSH SPEAKING. NO S/S OF APPARENT DISTRESS TOLERATING ROOM AIR. NO C/O PAIN AT THIS TIME. COLOSTOMY IN PLACE. NO FLUIDS RUNNING AT THIS TIME. GALVAN DRAINING YELLOW URINE WITH A LITTLE BIT OF SEDIMENTS -- ENDORSED TO ME THAT PATIENT HAD IRRIGATION. SAFETY IN PLACE. WILL CONTINUE TO MONITOR
[2021-03-10 20:00] VITALS: BP 137/78
[2021-03-10] MEDS: CEFTRIAXONE 1 G in IV D5W 50 ML IV SCH (20:59)
[2021-03-10] MEDS: ATORVASTATIN 40 MG TABLET PO SCH (21:58)
[2021-03-10] MEDS: LISINOPRIL (20MG) 20 MG TABLET PO SCH (21:58)
[2021-03-11 04:00] VITALS: BP 126/70
[2021-03-11 07:06] LABS: BASOPHILS # (AUTO) 0.1 K/uL (0.0-0.2); BASOPHILS % (AUTO) 0.8 % (0.0-2.0); EOSINOPHILS % (AUTO) 2.9 % (0.0-6.0); HEMATOCRIT 39 % (39-51); HEMOGLOBIN 12.6 g/dL (13.5-17.5); LYMPHOCYTES # (AUTO) 1.9 K/uL (0.8-4.8); LYMPHOCYTES % (AUTO) 18.6 % (20.0-44.0); MEAN CORPUSCULAR HGB CONC 33 g/dl (31.0-36.0); MEAN CORPUSCULAR VOLUME 97 fL (80-96); MONOCYTES # (AUTO) 1.1 K/uL (0.1-1.30); MONOCYTES % (AUTO) 11.2 % (2.0-12.0); NEUTROPHILS # (AUTO) 6.7 K/uL (1.8-8.9); NEUTROPHILS % (AUTO) 66.5 % (43.0-81.0); PLATELET COUNT (AUTO) 247 K/uL (150-450); RED BLOOD CELL COUNT(AUTO) 4.02 MIL/uL (4.5-6.0); WHITE BLOOD COUNT (AUTO) 10.1 K/uL (4.3-11.0)
[2021-03-11 07:32] LABS: CALCIUM, SERUM 8.6 mg/dL (8.5-10.1); CARBON DIOXIDE 26 mmol/L (21-32); CHLORIDE 96 mmol/L (98-107); CREATININE 7.2 mg/dL (0.6-1.3); GLUCOSE 170 mg/dL (74-106); POTASSIUM 4.6 mmol/L (3.5-5.1); SODIUM SERUM 136 mmol/L (136-145); UREA NITROGEN, BLOOD 52 mg/dL (7-18)
--- NOTE | 2021-03-11 07:42 | NUR ---
OPENING NOTES; RECEIVED PT AWAKE IN BED. A/OX3. PT IS CITIZEN OF [place] SPEAKING, SKIN INTACT. R AC#18 AND L AVF NOTED, WITH NO SIGNS OF INFILTRATION. SAFETY MEASURES RENDERED, BED IN LOWEST POSITION, LOCKED, WITH CALL LIGHT WITHIN REACH. WILL CONTINUE TO MONITOR.
--- NOTE | 2021-03-11 07:50 | NUR ---
MS RN closing Patient in bed with eyes closed. A/Ox3. No s/s of apparent distress tolerating room air. Denies pain at this time. No fluids running at this time. No hematuria was noted the whole shift. All needs attended. All scheduled meds administered. No significant change since last shift. Will endorse care to morning shift RN.
[2021-03-11] MEDS: DOCUSATE SODIUM 100 MG CAPSULE PO SCH ×2 (08:06→16:20)
[2021-03-11] MEDS: glipiZIDE 5 MG TABLET PO SCH (08:06)
[2021-03-11] MEDS: FLUDROCORTISONE 0.1 MG TABLET PO SCH (08:06)
[2021-03-11] MEDS: TIMOLOL MAL/DORZOLAM HCL OPHTH 10 ML BOTTLE LEFTEYE SCH ×2 (08:07→16:21)
[2021-03-11] MEDS: PROSOURCE / PROSTAT (PYXIS) 30 ML UDC PO SCH (10:23)
[2021-03-11 12:00] VITALS: BP 128/90
[2021-03-11] MEDS: FUROSEMIDE 40 MG TABLET PO SCH (13:07)
[2021-03-11] MEDS: METOPROLOL TARTRATE 25 MG TABLET PO SCH (13:08)
[2021-03-11] MEDS: CINACALCET HCL 30 MG TABLET PO SCH (17:43)
--- NOTE | 2021-03-11 18:24 | NUR ---
RN CLOSING NOTES; PT SITTING BY BEDSIDE, WATCHING TV. PT TOLERATING ROOM AIR AT 100 02 SAT. PT HAD DIALYSIS TODAY AND TOLERATED WELL. ALL MEDS GIVEN AND TOLERATED. WAITING FOR CLEARANCE FROM RF DESIGN ENGINEER TO BE D/C. PT KEPT CLEAN, DRY AND COMFORTABLE. SAFETY MEASURES RENDERED, BED IN LOWEST POS. LOCKED, WITH CALL LIGHT WITHIN REACH. ENDORSED TO APPLICATION DEVELOPMENT CONSULTANT RN IN STABLE CONDITION.
--- NOTE | 2021-03-11 19:21 | NUR ---
RN NOTES PT SITTING BY BEDSIDE, WATCHING TV. PT TOLERATING ROOM AIR AT 100 02 SAT. PT HAD DIALYSIS TODAY. WAITING FOR CLEARANCE FROM STEAM PRESSER TO BE D/C. PT KEPT CLEAN, DRY AND COMFORTABLE. SAFETY MEASURES RENDERED, BED IN LOWEST POS. LOCKED, WITH CALL LIGHT WITHIN REACH. WILL CONTINUE TO MONITOR.
[2021-03-11] MEDS: CEFTRIAXONE 1 G in IV D5W 50 ML IV SCH (20:41)
[2021-03-11] MEDS: ATORVASTATIN 40 MG TABLET PO SCH (22:00)
[2021-03-11] MEDS: LISINOPRIL (20MG) 20 MG TABLET PO SCH (22:01)
[2021-03-11 22:26] VITALS: BP 115/70
[2021-03-12 05:09] VITALS: BP 134/33
--- NOTE | 2021-03-12 06:36 | NUR ---
RN NOTES PT IN BED, WATCHING TV. PT TOLERATING ROOM AIR AT 100 02 SAT. PT KEPT CLEAN, DRY AND COMFORTABLE. SAFETY MEASURES RENDERED, BED IN LOWEST POS. LOCKED, WITH CALL LIGHT WITHIN REACH. GALVAN OUTPUT OF 75 ML. COLOSTOMY BAG CHANGED. ALL DUE MEDS GIVEN AND TOLERATED WELL. CALL LIGHT WITHIN REACH. BILATERAL SIDE RAILS UP FOR SAFETY. WILL ENDORSE CARE TO DAY SHIFT NURSE.
--- NOTE | 2021-03-12 07:38 | NUR ---
OPENING NOTES; RECEIVED PT SITTING ON SIDE OF THE BED. A/OX3. PT IS YEMENI SPEAKING BUT CAN MAKE NEEDS KNOWN. R AC#18 AND L AVF NOTED, WITH NO SIGNS OF INFILTRATION. SAFETY MEASURES RENDERED, BED IN LOWEST POSITION, LOCKED, WITH CALL LIGHT WITHIN REACH. WILL CONTINUE TO MONITOR.
[2021-03-12] MEDS: glipiZIDE 5 MG TABLET PO SCH (08:03)
[2021-03-12] MEDS: DOCUSATE SODIUM 100 MG CAPSULE PO SCH ×2 (08:03→17:08)
[2021-03-12] MEDS: FLUDROCORTISONE 0.1 MG TABLET PO SCH (08:03)
[2021-03-12] MEDS: PROSOURCE / PROSTAT (PYXIS) 30 ML UDC PO SCH (08:03)
[2021-03-12] MEDS: TIMOLOL MAL/DORZOLAM HCL OPHTH 10 ML BOTTLE LEFTEYE SCH ×2 (08:03→17:08)
[2021-03-12 08:04] LABS: BASOPHILS # (AUTO) 0.1 K/uL (0.0-0.2); BASOPHILS % (AUTO) 0.6 % (0.0-2.0); EOSINOPHILS % (AUTO) 2.2 % (0.0-6.0); HEMATOCRIT 38 % (39-51); HEMOGLOBIN 12.6 g/dL (13.5-17.5); LYMPHOCYTES # (AUTO) 1.9 K/uL (0.8-4.8); LYMPHOCYTES % (AUTO) 17.7 % (20.0-44.0); MEAN CORPUSCULAR HGB CONC 33 g/dl (31.0-36.0); MEAN CORPUSCULAR VOLUME 97 fL (80-96); MONOCYTES # (AUTO) 1.2 K/uL (0.1-1.30); MONOCYTES % (AUTO) 11.2 % (2.0-12.0); NEUTROPHILS # (AUTO) 7.3 K/uL (1.8-8.9); NEUTROPHILS % (AUTO) 68.3 % (43.0-81.0); PLATELET COUNT (AUTO) 256 K/uL (150-450); RED BLOOD CELL COUNT(AUTO) 3.97 MIL/uL (4.5-6.0); WHITE BLOOD COUNT (AUTO) 10.7 K/uL (4.3-11.0)
[2021-03-12 08:44] LABS: CALCIUM, SERUM 8.9 mg/dL (8.5-10.1); CARBON DIOXIDE 28 mmol/L (21-32); CHLORIDE 96 mmol/L (98-107); GLUCOSE 160 mg/dL (74-106); POTASSIUM 4.6 mmol/L (3.5-5.1); SODIUM SERUM 136 mmol/L (136-145); UREA NITROGEN, BLOOD 44 mg/dL (7-18)
[2021-03-12 12:00] VITALS: BP 128/68
[2021-03-12] MEDS: CINACALCET HCL 30 MG TABLET PO SCH (17:08)
--- NOTE | 2021-03-12 18:09 | NUR ---
RN CLOSING NOTES; PT LAYING IN BED RESTING. PT IS ON RA AND TOLERATED IT WELL AT 100 02 SAT. ALL MEDS GIVEN AND TOLERATED. NO SIGNIFICANT CHANGES IN PT CONDITION DURING SHIFT. PT KEPT CLEAN, DRY AND COMFORTABLE. SAFETY MEASURES RENDERED, BED IN LOWEST POS. LOCKED, WITH CALL LIGHT WITHIN REACH. ENDORSED TO DIRECTOR FINANCIAL SERVICES RN IN STABLE CONDITION. DAUGHTER JOLIE CALLED TO GET AN UPDATE REGARDING PT DISCHARGE. RN GAVE UPDATE. DAUGHTER WOULD LIKE TO BE CALLED BEFORE PT IS D/C AND GO OVER MEDICATIONS PT WILL BE DISCHARGED WITH.
[2021-03-12 20:00] VITALS: BP 157/62
--- NOTE | 2021-03-12 20:00 | NUR ---
RN NOTES Receive patient awake on his bed, a/ox4, Chinese speaking, with colostomy bad, denies pain, no SOB, call light within reach, [id number], will continue to monitor
[2021-03-12] MEDS: CEFTRIAXONE 1 G in IV D5W 50 ML IV SCH (20:27)
[2021-03-12] MEDS: ATORVASTATIN 40 MG TABLET PO SCH (22:13)
[2021-03-12] MEDS: LISINOPRIL (20MG) 20 MG TABLET PO SCH (22:13)
[2021-03-13 04:00] VITALS: BP 120/71
--- NOTE | 2021-03-13 06:34 | NUR ---
RN NOTES sleeping but arousable, denies pain, no SOB, call light within reach, [id number], pt. needs attended
[2021-03-13 06:41] LABS: BASOPHILS # (AUTO) 0.1 K/uL (0.0-0.2); BASOPHILS % (AUTO) 0.8 % (0.0-2.0); EOSINOPHILS % (AUTO) 3.2 % (0.0-6.0); HEMATOCRIT 38 % (39-51); HEMOGLOBIN 12.2 g/dL (13.5-17.5); LYMPHOCYTES % (AUTO) 20.2 % (20.0-44.0); MEAN CORPUSCULAR HGB CONC 33 g/dl (31.0-36.0); MEAN CORPUSCULAR VOLUME 97 fL (80-96); MONOCYTES % (AUTO) 10.6 % (2.0-12.0); NEUTROPHILS # (AUTO) 6.4 K/uL (1.8-8.9); NEUTROPHILS % (AUTO) 65.2 % (43.0-81.0); PLATELET COUNT (AUTO) 262 K/uL (150-450); RED BLOOD CELL COUNT(AUTO) 3.89 MIL/uL (4.5-6.0); WHITE BLOOD COUNT (AUTO) 9.8 K/uL (4.3-11.0)
[2021-03-13 07:06] LABS: CALCIUM, SERUM 8.6 mg/dL (8.5-10.1); CARBON DIOXIDE 24 mmol/L (21-32); CHLORIDE 93 mmol/L (98-107); GLUCOSE 140 mg/dL (74-106); POTASSIUM 4.7 mmol/L (3.5-5.1); SODIUM SERUM 132 mmol/L (136-145); UREA NITROGEN, BLOOD 60 mg/dL (7-18)
[2021-03-13 07:18] LABS: CREATININE 7.8 mg/dL (0.6-1.3)
--- NOTE | 2021-03-13 07:42 | NUR ---
MS RN OPENING NOTES RECEIVED PATIENT IN BED, ASLEEP. PATIENT ON ROOM AIR; BREATHING EVEN AND UNLABORED; NO SOB NOTED AT THIS TIME. NO S/S OF PAIN SUCH FACIAL GRIMACING, MOANING OR GUARDING NOTED. RAC IV ACCESS G #[address] AND INTACT. LAV SHUNT IN PLACE. SAFETY PRECAUTIONS IN PLACE; BED IN LOW POSITION AND LOCKED, RAILS UP X2, CALL LIGHT WITHIN REACH. WILL CONTINUE TO MONITOR PATIENT.
[2021-03-13] MEDS: DOCUSATE SODIUM 100 MG CAPSULE PO SCH ×2 (08:12→16:10)
[2021-03-13] MEDS: glipiZIDE 5 MG TABLET PO SCH (08:12)
[2021-03-13] MEDS: FLUDROCORTISONE 0.1 MG TABLET PO SCH (08:12)
[2021-03-13] MEDS: TIMOLOL MAL/DORZOLAM HCL OPHTH 10 ML BOTTLE LEFTEYE SCH ×2 (08:13→16:10)
[2021-03-13] MEDS: PROSOURCE / PROSTAT (PYXIS) 30 ML UDC PO SCH (08:14)
--- NOTE | 2021-03-13 08:40 | NUR ---
MS RN NOTES PATIENT STARTED HD
[2021-03-13 12:10] VITALS: BP 123/73
[2021-03-13] MEDS: METOPROLOL TARTRATE 25 MG TABLET PO SCH (12:37)
--- NOTE | 2021-03-13 12:40 | NUR ---
MS RN NOTES HD COMPLETE. PER HD NURSE 2 L REMOVED. BP 124/72 HR 94
[2021-03-13] MEDS: FUROSEMIDE 40 MG TABLET PO SCH (14:04)
--- NOTE | 2021-03-13 14:12 | NUR ---
MS RN NOTES 1400 LASIX NON-ADMINISTERED DUE TO DECREASED BP OF 98/57 HR 81
[2021-03-13] MEDS: CINACALCET HCL 30 MG TABLET PO SCH (17:33)
--- NOTE | 2021-03-13 18:56 | NUR ---
MS RN CLOSING NOTES PATIENT REMAINS IN BED, AWAKE, A/O X4. PATIENT ON ROOM AIR; BREATHING EVEN AND UNLABORED; NO SOB NOTED AT THIS TIME. NO COMPLAINS OF PAIN DURING SHIFT. RAC IV ACCESS G #[address] AND INTACT. LAV SHUNT IN PLACE. ALL NEEDS ATTENDED DURING THE DAY. SAFETY PRECAUTIONS IN PLACE; BED IN LOW POSITION AND LOCKED, RAILS UP X2, CALL LIGHT WITHIN REACH. WILL ENDORSE TO CHAPTER RELATIONS ADMINISTRATOR NURSE.
--- NOTE | 2021-03-13 19:10 | NUR ---
RN NOTE RECEIVED PATIENT IN BED RESTING ALERT ORIENTEDX4 VERBALLY RESPONSIVE ON ROOM AIR O2:96% IV SITE IS ON RIGHT AC INTACT PATENT AND LEFT AV SHUNT INTACT GALVAN CATHETER IN PLACE URINE DRAINING DARK ORANGE AND CLOUDY,COLOSTOMY BAG IN PLACE,SAFETY MEASURE IMPLEMENT BED IN LOW POSITON AND LOCKED,CALL LIGHT WITHIN REACH, CONTINUE TO MONITOR.
[2021-03-13 20:00] VITALS: BP 109/61
[2021-03-13] MEDS: CEFTRIAXONE 1 G in IV D5W 50 ML IV SCH (20:22)
[2021-03-13] MEDS: ATORVASTATIN 40 MG TABLET PO SCH (21:23)
[2021-03-13] MEDS: LISINOPRIL (20MG) 20 MG TABLET PO SCH (21:23)
--- NOTE | 2021-03-13 22:10 | NUR ---
RN NOTE REPORT GIVEN TO DOMINGA FRANCE
--- NOTE | 2021-03-13 22:25 | NUR ---
RN NOTE PATIENT TRANSFERRED TO [facility] AT ROOM 323-1 FOR CONTINUATION OF CARE.
--- NOTE | 2021-03-13 22:30 | NUR ---
MS FIELD SAMPLING TECHNICIAN NOTE PATIENT ARRIVED TO ROOM FROM [facility], PT ALERT/ORIENTED X 4, PT ABLE TO MAKE NEEDS KNOWN. PT DENIES PAIN AT THIS TIME, VITAL SIGNS WNL. PT STABLE ON RA, NO S/S OF DISTRESS OR SOB NOTED, BREATHING EVEN AND UNLABORED. RIGHT AC #18G IV ACCESS INTACT AND FLUSHING WELL, LEFT AV SHUNT INTACT. COLOSTOMY BAG AND GALVAN CATHETER INTACT AND DRAINING WELL. SAFETY MEASURES IN PLACE: CALL LIGHT WITHIN REACH, BED LOCKED IN LOW POSITION, SIDE RAILS UP X 2. WILL CONTINUE TO MONITOR PATIENT
--- NOTE | 2021-03-14 07:36 | NUR ---
MS RN CLOSING NOTE PT SLEEPING IN BED, PT ONLY SPEAKS LIBYAN. PT STABLE ON RA, NO S/S OF DISTRESS OR SOB NOTED, BREATHING EVEN AND UNLABORED. RIGHT AC #18G IV ACCESS SALINE LOCKED, LEFT AV SHUNT INTACT. COLOSTOMY BAG AND GALVAN CATHETER INTACT AND DRAINING WELL. PT NEEDS MET THROUGHOUT SHIFT. SAFETY MEASURES IN PLACE: CALL LIGHT WITHIN REACH, BED LOCKED IN LOW POSITION, SIDE RAILS UP X 2. ENDORSED TO DAY SHIFT NURSE FOR CONTINUITY OF CARE
--- NOTE | 2021-03-14 07:40 | NUR ---
MS/RN OPENING NOTE RECEIVED PATIENT IN BED. STABLE ON ROOM AIR, NO S/S OF DISTRESS OR SOB NOTED, BREATHING EVEN AND UNLABORED. RIGHT AC #18G IV ACCESS SALINE LOCKED, LEFT AV SHUNT INTACT. COLOSTOMY BAG AND GALVAN CATHETER INTACT AND DRAINING WELL. SAFETY MEASURES IN PLACED: BED LOCKED IN LOWEST POSITION, SIDE RAILS UP X 2, CALL LIGHT WITHIN REACH. WILL CONTINUE TO MONITOR PATIENT.
[2021-03-14 08:32] LABS: BASOPHILS # (AUTO) 0.1 K/uL (0.0-0.2); BASOPHILS % (AUTO) 0.7 % (0.0-2.0); EOSINOPHILS % (AUTO) 3.2 % (0.0-6.0); HEMATOCRIT 41 % (39-51); HEMOGLOBIN 13.4 g/dL (13.5-17.5); LYMPHOCYTES # (AUTO) 2.3 K/uL (0.8-4.8); LYMPHOCYTES % (AUTO) 22.7 % (20.0-44.0); MEAN CORPUSCULAR HGB CONC 33 g/dl (31.0-36.0); MEAN CORPUSCULAR VOLUME 97 fL (80-96); MONOCYTES # (AUTO) 0.8 K/uL (0.1-1.30); MONOCYTES % (AUTO) 8.3 % (2.0-12.0); NEUTROPHILS # (AUTO) 6.5 K/uL (1.8-8.9); NEUTROPHILS % (AUTO) 65.1 % (43.0-81.0); PLATELET COUNT (AUTO) 315 K/uL (150-450); RED BLOOD CELL COUNT(AUTO) 4.21 MIL/uL (4.5-6.0)
--- NOTE | 2021-03-14 08:56 | NUR ---
MS/RN NOTES- BLOOD PRESSURE MD DR. LAGUNA IS AWARE THAT PATIENT'S BP IS 99/34. PER DR. LAGUNA, MONITOR IF FURTHER GOES DOWN.
[2021-03-14] MEDS: TIMOLOL MAL/DORZOLAM HCL OPHTH 10 ML BOTTLE LEFTEYE SCH ×2 (09:12→17:17)
[2021-03-14] MEDS: FLUDROCORTISONE 0.1 MG TABLET PO SCH (09:22)
[2021-03-14] MEDS: PROSOURCE / PROSTAT (PYXIS) 30 ML UDC PO SCH (09:22)
[2021-03-14] MEDS: glipiZIDE 5 MG TABLET PO SCH (09:22)
[2021-03-14] MEDS: DOCUSATE SODIUM 100 MG CAPSULE PO SCH ×2 (09:22→17:17)
[2021-03-14 10:45] LABS: SODIUM SERUM 134 mmol/L (136-145)
[2021-03-14 10:46] LABS: CALCIUM, SERUM 9.2 mg/dL (8.5-10.1); CARBON DIOXIDE 26 mmol/L (21-32); CHLORIDE 95 mmol/L (98-107); CREATININE 7.1 mg/dL (0.6-1.3); GLUCOSE 243 mg/dL (74-106); POTASSIUM 5.3 mmol/L (3.5-5.1); UREA NITROGEN, BLOOD 55 mg/dL (7-18)
[2021-03-14 10:55] VITALS: BP 99/55
[2021-03-14] MEDS ORDERED: SODIUM POLYSTYRENE SULFONATE 15 G/60 ML BOTTLE PO ONE (12:00)
[2021-03-14] MEDS: CINACALCET HCL 30 MG TABLET PO SCH (17:17)
--- NOTE | 2021-03-14 18:55 | NUR ---
MS/RN CLOSING NOTE PATIENT IN BED. STABLE ON ROOM AIR, NO S/S OF DISTRESS OR SOB NOTED, BREATHING EVEN AND UNLABORED. RIGHT AC #18G IV ACCESS SALINE LOCKED, LEFT AV SHUNT INTACT. COLOSTOMY BAG AND GALVAN CATHETER INTACT AND DRAINING WELL. ALL NEEDS MET. PATIENT KEPT COMFORTABLE. SAFETY MEASURES IN PLACED: BED LOCKED IN LOWEST POSITION, SIDE RAILS UP X 2, CALL LIGHT WITHIN REACH. WILL ENDORSE TO THE NEXT SHIFT FOR KOSTA.
--- NOTE | 2021-03-14 19:30 | NUR ---
MS RN OPENING NOTE RECEIVED PT AWAKE IN BED. A/O X4. PT IS STABLE ON ROOM AIR WITH NO SOB OR S/S OF RESPIRATORY DISTRESS NOTED. PT HAS NO C/O PAIN OR DISCOMFORT AT THIS TIME. IV ACCESS IN RAC #18, SALINE-LOCKED. PT NOTED WITH LEFT AV SHUNT INTACT. COLOSTOMY BAG AND GALVAN CATH INTACT AND DRAINING WELL. SAFETY PRECAUTIONS MAINTAINED. BED IN LOWEST LOCKED POSITION, HOB ELEVATED, SIDE RAILS UP X2. CALL LIGHT AND TABLE WITHIN REACH. WILL CONTINUE TO MONITOR.
[2021-03-14 20:00] VITALS: BP 121/61
[2021-03-14] MEDS: CEFTRIAXONE 1 G in IV D5W 50 ML IV SCH (20:08)
[2021-03-14] MEDS: ATORVASTATIN 40 MG TABLET PO SCH (21:07)
[2021-03-14] MEDS: LISINOPRIL (20MG) 20 MG TABLET PO SCH (21:08)
[2021-03-14 22:00] VITALS: BP 114/57
--- NOTE | 2021-03-15 07:00 | NUR ---
MS RN CLOSING NOTE PT IS IN BED WITH EYES CLOSED, AROUSABLE TO STIMULATION. A/O X4. PT IS STABLE ON ROOM AIR WITH NO SOB OR S/S OF RESPIRATORY DISTRESS NOTED. PT HAS NO C/O PAIN OR DISCOMFORT AT THIS TIME. IV ACCESS IN RAC #18, SALINE-LOCKED. PT NOTED WITH LEFT AV SHUNT INTACT. COLOSTOMY BAG AND GALVAN CATH INTACT AND DRAINING WELL. ALL NEEDS HAVE BEEN MET. SAFETY PRECAUTIONS MAINTAINED AT ALL TIMES. BED IN LOWEST LOCKED POSITION, HOB ELEVATED, SIDE RAILS UP X2. CALL LIGHT AND TABLE WITHIN REACH. WILL ENDORSE TO ONCOMING NURSE FOR KOSTA.
[2021-03-15 07:35] LABS: BASOPHILS # (AUTO) 0.1 K/uL (0.0-0.2); EOSINOPHILS % (AUTO) 3.5 % (0.0-6.0); HEMATOCRIT 40 % (39-51); HEMOGLOBIN 13.2 g/dL (13.5-17.5); LYMPHOCYTES # (AUTO) 2.1 K/uL (0.8-4.8); LYMPHOCYTES % (AUTO) 24.5 % (20.0-44.0); MEAN CORPUSCULAR HGB CONC 33 g/dl (31.0-36.0); MEAN CORPUSCULAR VOLUME 97 fL (80-96); MONOCYTES # (AUTO) 0.9 K/uL (0.1-1.30); MONOCYTES % (AUTO) 9.9 % (2.0-12.0); NEUTROPHILS # (AUTO) 5.3 K/uL (1.8-8.9); NEUTROPHILS % (AUTO) 61.1 % (43.0-81.0); PLATELET COUNT (AUTO) 314 K/uL (150-450); RED BLOOD CELL COUNT(AUTO) 4.14 MIL/uL (4.5-6.0); WHITE BLOOD COUNT (AUTO) 8.6 K/uL (4.3-11.0)
[2021-03-15 08:27] VITALS: BP 99/62
[2021-03-15 08:53] LABS: CALCIUM, SERUM 9.4 mg/dL (8.5-10.1); CARBON DIOXIDE 21 mmol/L (21-32); CHLORIDE 94 mmol/L (98-107); GLUCOSE 142 mg/dL (74-106); POTASSIUM 5.3 mmol/L (3.5-5.1); SODIUM SERUM 133 mmol/L (136-145); UREA NITROGEN, BLOOD 68 mg/dL (7-18)
[2021-03-15] MEDS: FLUDROCORTISONE 0.1 MG TABLET PO SCH (08:56)
[2021-03-15] MEDS: PROSOURCE / PROSTAT (PYXIS) 30 ML UDC PO SCH (08:56)
[2021-03-15] MEDS: glipiZIDE 5 MG TABLET PO SCH (08:56)
[2021-03-15] MEDS: DOCUSATE SODIUM 100 MG CAPSULE PO SCH ×2 (08:56→17:23)
[2021-03-15 08:57] LABS: CREATININE 8.5 mg/dL (0.6-1.3)
[2021-03-15] MEDS: TIMOLOL MAL/DORZOLAM HCL OPHTH 10 ML BOTTLE LEFTEYE SCH ×2 (08:57→17:24)
[2021-03-15 10:58] VITALS: BP 99/62
[2021-03-15] MEDS: METOPROLOL TARTRATE 25 MG TABLET PO SCH (13:00)
[2021-03-15] MEDS: FUROSEMIDE 40 MG TABLET PO SCH (14:48)
[2021-03-15 16:36] VITALS: BP 114/60
[2021-03-15] MEDS: CINACALCET HCL 30 MG TABLET PO SCH (17:23)
--- NOTE | 2021-03-15 19:41 | NUR ---
MS RN OPENING NOTES PATIENT WAS LAST SEEN SLEEPING IN BED. PATIENT'S ALERT AND ORIENTEDX4. PATIENT'S ON ROOM AIR WITH NO RESPIRATORY DISTRESS NOTED. PATIENT HAS AN IV ACCESS ON HER RAC GAUGE #18 AND A L AV FISTULA. PATIENT'S IN NO ACUTE DISTRESS AT THIS TIME. SAFETY MEASURES IN PLACE: BED LOCKED, BED ALARM ON, SIDE RAILS UPX3, AND CALL LIGHT WITHIN REACH OF THE PATIENT. WILL CONTINUE TO MONITOR THE PATIENT.
[2021-03-15 20:21] VITALS: BP_SYST 104; BP_SYST 159; BP_DIAS 64; BP_DIAS 94
[2021-03-15] MEDS: ATORVASTATIN 40 MG TABLET PO SCH (21:37)
[2021-03-15] MEDS: LISINOPRIL (20MG) 20 MG TABLET PO SCH (21:43)
[2021-03-15] MEDS ORDERED: CEFTRIAXONE 1 G VIAL ONE (21:46)
[2021-03-15] MEDS: CEFTRIAXONE 1 G in IV D5W 50 ML IV SCH (21:48)
[2021-03-16 06:23] LABS: BASOPHILS # (AUTO) 0.1 K/uL (0.0-0.2); EOSINOPHILS % (AUTO) 2.6 % (0.0-6.0); HEMATOCRIT 38 % (39-51); HEMOGLOBIN 12.6 g/dL (13.5-17.5); LYMPHOCYTES # (AUTO) 1.9 K/uL (0.8-4.8); LYMPHOCYTES % (AUTO) 22.6 % (20.0-44.0); MEAN CORPUSCULAR HGB CONC 33 g/dl (31.0-36.0); MEAN CORPUSCULAR VOLUME 96 fL (80-96); MONOCYTES # (AUTO) 0.8 K/uL (0.1-1.30); MONOCYTES % (AUTO) 9.6 % (2.0-12.0); NEUTROPHILS # (AUTO) 5.5 K/uL (1.8-8.9); NEUTROPHILS % (AUTO) 64.2 % (43.0-81.0); PLATELET COUNT (AUTO) 294 K/uL (150-450); RED BLOOD CELL COUNT(AUTO) 3.96 MIL/uL (4.5-6.0); WHITE BLOOD COUNT (AUTO) 8.5 K/uL (4.3-11.0)
--- NOTE | 2021-03-16 07:00 | NUR ---
MS RN CLOSING NOTES PATIENT WAS LAST SEEN SLEEPING IN BED. PATIENT'S ALERT AND ORIENTEDX4. PATIENT'S ON ROOM AIR WITH NO RESPIRATORY DISTRESS NOTED. PATIENT HAS A SALINE LOCK ON HER RAC GAUGE #18 AND A L AV FISTULA PATIENT'S IN NO ACUTE DISTRESS AT THIS TIME. SAFETY MEASURES IN PLACE: BED LOCKED, BED ALARM ON, SIDE RAILS UPX3, AND CALL LIGHT WITHIN REACH OF THE PATIENT. WILL ENDORSE CARE TO THE DAY SHIFT NURSE.
[2021-03-16 07:10] LABS: CALCIUM, SERUM 8.8 mg/dL (8.5-10.1); CARBON DIOXIDE 24 mmol/L (21-32); CHLORIDE 98 mmol/L (98-107); CREATININE 7.1 mg/dL (0.6-1.3); GLUCOSE 146 mg/dL (74-106); POTASSIUM 4.9 mmol/L (3.5-5.1); SODIUM SERUM 136 mmol/L (136-145); UREA NITROGEN, BLOOD 58 mg/dL (7-18)
--- NOTE | 2021-03-16 07:56 | NUR ---
MS RN OPENING NOTE RECEIVED PATIENT IN BED, ASLEEP, EASY TO AROUSE. ALERT AND ORIENTED X 4, SCOTTISH SPEAKING. NO S/S OF DISTRESS NOTED. BREATHING IS EVEN AND UNLABORED. IV ACCESS RAC#18 PATENT AND INTACT. SAFETY MEASURES IN PLACE WITH BED LOCKED IN LOW POSITION, SIDE RAILS UP X 2. CALL LIGHT WITHIN REACH. WILL CONTINUE TO MONITOR THROUGHOUT SHIFT.
[2021-03-16 08:00] VITALS: BP 95/57
[2021-03-16] MEDS: PROSOURCE / PROSTAT (PYXIS) 30 ML UDC PO SCH (08:49)
[2021-03-16] MEDS: glipiZIDE 5 MG TABLET PO SCH (08:49)
[2021-03-16] MEDS: FLUDROCORTISONE 0.1 MG TABLET PO SCH (08:49)
[2021-03-16] MEDS: DOCUSATE SODIUM 100 MG CAPSULE PO SCH (08:49)
[2021-03-16] MEDS: TIMOLOL MAL/DORZOLAM HCL OPHTH 10 ML BOTTLE LEFTEYE SCH (08:53)
--- NOTE | 2021-03-16 11:59 | NUR ---
MS RN NOTES REPORT GIVEN TO ROMÁN SMITH AT [facility]. ALL QUESTIONS ANSWERED.
--- NOTE | 2021-03-16 13:16 | NUR ---
MS DOG SHOW JUDGE NOTES DISCHARGE ORDER RECEIVED. PATIENT WAS PICKED UP BY 2 EMT AND TRANSPORTED TO [facility] WITH STABLE VITAL SIGNS. DISCHARGE SUMMARY REVIEWED WITH PATIENT AND SIGNED PRIOR TO LEAVING FACILITY. PATIENT BELONGINGS RETURNED AND SIGNED FORM. IV ACCESS REMOVED, ID BAND REMOVED, COLOSTOMY BAG REMOVED AND REPLACED, GALVAN CATHETER REMOVED. OBSERVED PATIENT EXIT UNIT AT THIS TIME. REPORT GIVEN TO ROMÁN SMITH AT [facility].
== END 2021-03-16 13:50 | DRG 689 ==
LOC: ER 10:47 → MEDSG1 19:09 → MED 03-13 22:42
PROVIDERS: ADMIT Internal Medicine; ATTEND Family Medicine
PROC: 5A1D70Z Performance of Urinary Filtration, Intermittent, Less than 6 Hours Per Day (ICD-10-PCS; principal; 2021-03-09)
PROC: 5A1935Z Respiratory Ventilation, Less than 24 Consecutive Hours (ICD-10-PCS; 2021-03-12)
PROC: 0BH17EZ Insertion of Endotracheal Airway into Trachea, Via Natural or Artificial Opening (ICD-10-PCS; 2021-03-12)
DX: N39.0 Urinary tract infection, site not specified (principal); N18.6 End stage renal disease; D62 Acute posthemorrhagic anemia; E44.0 Moderate protein-calorie malnutrition; E87.1 Hypo-osmolality and hyponatremia; I12.0 Hypertensive chronic kidney disease with stage 5 chronic kidney disease or end stage renal disease; J98.11 Atelectasis; R31.0 Gross hematuria; E11.22 Type 2 diabetes mellitus with diabetic chronic kidney disease; E11.40 Type 2 diabetes mellitus with diabetic neuropathy, unspecified; I25.10 Atherosclerotic heart disease of native coronary artery without angina pectoris; E87.5 Hyperkalemia; Z95.1 Presence of aortocoronary bypass graft; Z20.822 Contact with and (suspected) exposure to COVID-19; F17.200 Nicotine dependence, unspecified, uncomplicated; E78.5 Hyperlipidemia, unspecified; E87.70 Fluid overload, unspecified; I25.2 Old myocardial infarction; Z99.2 Dependence on renal dialysis; Z79.899 Other long term (current) drug therapy; Z79.82 Long term (current) use of aspirin; Z79.4 Long term (current) use of insulin; D63.1 Anemia in chronic kidney disease; Z93.3 Colostomy status; M89.9 Disorder of bone, unspecified
CPT/HCPCS: 36415; 71045-TC; 80048-TC; 80053-TC; 80061-TC; 80076-TC; 81001; 83605-TC; 83735-TC; 84100-TC; 84484-TC; 85025-TC; 85730-TC; 86706; 87040-TC; 87081-TC; 87086-TC; 87340; 90935-TC; A4217; A6403; C9803; G0378; J0696; J3490; J7030; J7050; J7060; Q9967; U0003

== ENCOUNTER 2022-11-04 23:26 | Emergency (ER) | payer MEDICARE, OTHER ==
[~2022-11-04] VITALS: Ht 165.1 cm; Wt 82.1 kg
[~2022-11-04 23:26] MED LIST changes: +ASPI-1169 PO; +CINA30TA2 PO; +LANT750T3 PO; -LEVO500T90 PO
--- NOTE | 2022-11-05 | NUR ---
CALLY FROM [facility] 2/2 [facility] (K+ 5.9, BUN 48, CREAT 7.06)
--- NOTE | 2022-11-05 00:12 | NUR ---
[facility] AT BEDSIDE
[2022-11-05 00:44] LABS: BASOPHILS # (AUTO) 0.1 K/uL (0.0-0.2); BASOPHILS % (AUTO) 2.4 % (0.0-2.0); EOSINOPHILS % (AUTO) 1.2 % (0.0-6.0); HEMATOCRIT 51 % (39-51); HEMOGLOBIN 16.2 g/dL (13.5-17.5); LYMPHOCYTES # (AUTO) 1.4 K/uL (0.8-4.8); LYMPHOCYTES % (AUTO) 22.2 % (20.0-44.0); MEAN CORPUSCULAR HGB CONC 32 g/dl (31.0-36.0); MEAN CORPUSCULAR VOLUME 87 fL (80-96); MONOCYTES # (AUTO) 0.9 K/uL (0.1-1.30); MONOCYTES % (AUTO) 13.9 % (2.0-12.0); NEUTROPHILS # (AUTO) 3.8 K/uL (1.8-8.9); NEUTROPHILS % (AUTO) 60.3 % (43.0-81.0); PLATELET COUNT (AUTO) 178 K/uL (150-450); RED BLOOD CELL COUNT(AUTO) 5.81 MIL/uL (4.5-6.0); WHITE BLOOD COUNT (AUTO) 6.4 K/uL (4.3-11.0)
[2022-11-05 00:50] LABS: CALCIUM, SERUM 9.6 mg/dL (8.5-10.1); CARBON DIOXIDE 31 mmol/L (21-32); CHLORIDE 100 mmol/L (98-107); CREATININE 6.1 mg/dL (0.6-1.3); GLUCOSE 154 mg/dL (74-106); POTASSIUM 5.3 mmol/L (3.5-5.1); SODIUM SERUM 138 mmol/L (136-145); UREA NITROGEN, BLOOD 38 mg/dL (7-18)
[2022-11-05 00:59] LABS: ALANINE AMINOTRANSFERASE 29 U/L (12-78); ALBUMIN 3.4 g/dL (3.4-5.0); ALKALINE PHOSPHATASE 166 U/L (46-116); ASPARTATE AMINOTRANSFERASE 16 U/L (15-37); BILIRUBIN,DIRECT 0.1 mg/dL (0.0-0.2); BILIRUBIN,TOTAL 0.6 mg/dL (0.2-1.0); LIPASE 241 U/L (73-393)
[2022-11-05] MEDS ORDERED: IV NS 0.9% 500 ML BAG IV ONE (01:30)
--- NOTE | 2022-11-05 02:00 | NUR ---
[facility] ETA: 45-60 MIN
--- NOTE | 2022-11-05 02:14 | NUR ---
GAVE REPORT TO NURSING OIL WELL SHOOTER @[facility]
--- NOTE | 2022-11-05 02:28 | NUR ---
[facility] AT BEDSIDE TO TAKE PT BACK TO [facility]
[2022-11-05 03:24] VITALS: BP 110/60
== END 2022-11-05 02:50 | disposition home or self-care (01) ==
LOC: ER 23:31
DX: I12.0 Hypertensive chronic kidney disease with stage 5 chronic kidney disease or end stage renal disease (principal); N18.6 End stage renal disease; E87.5 Hyperkalemia; E11.22 Type 2 diabetes mellitus with diabetic chronic kidney disease; Z99.2 Dependence on renal dialysis; Z79.899 Other long term (current) drug therapy; Z79.82 Long term (current) use of aspirin
CPT/HCPCS: 36415; 80048-TC; 80076-TC; 83690-TC; 85025-TC; 85730-TC